=== PATIENT | female | born 1950 | race Caucasian/White ===

== ENCOUNTER 2018-09-24 10:42 | Outpatient (REF) | payer BC, SELFPAY ==
[2018-09-24 21:55] LABS: Abs Immature Grans 0.01 k/cumm (0.0-0.09); Absolute Basophil Count 0.04 k/cumm (0.0-0.2); Absolute Eosinophil Count 0.12 k/cumm (0.0-0.7); Absolute Neutrophil Count 2.51 k/cumm (1.2-6.7); Basophils % 0.8; Eosinophils % 2.3; HCT 35.8 % (36.0-46.0); HGB 11.8 g/dL (12.0-15.5); Immature Grans % 0.2; Lymphocytes % 38.6; Mean Corpuscular Hemoglobin 31.2 pg (27.0-33.0); Mean Corpuscular Volume 94.7 fL (80-95); Mean Platelet Volume 10.7 fL (8.0-11.0); Monocytes % 9.7; Neutrophils % 48.4; Platelet Count 255 x1000/uL (130-400); RBC 3.78 m/cumm (4.00-5.20); RBC Distribution Width 13.3 % (11.7-14.6); White Blood Cell Count 5.18 k/cumm (4.4-10.8)
[2018-09-24 22:08] LABS: ALT 17 U/L (12-78); AST 23 U/L (15-37); Albumin 3.8 g/dL (3.4-5.0); Alkaline Phosphatase 76 U/L (46-116); Anion Gap 9.6 mmol/L (3-11); BUN 10 mg/dL (7-18); Bilirubin, Total 0.4 mg/dL (0.2-1.0); CO2 27.4 mmol/L (21.0-32.0); CREATININE 0.97 mg/dL (0.55-1.02); Chloride 102 mmol/L (98-107); Estimated GFR 57.64 (mL/min/1.73m2); Glucose 84 mg/dL (70-100); Potassium 4.2 mmol/L (3.5-5.1); Sodium 139 mmol/L (136-145); Total Protein 7.2 g/dL (6.4-8.2)
== END 2018-09-24 11:02 ==
LOC: NCHCN 10:42
PROVIDERS: PCP Internal Medicine; Visit Provider Nurse Practitioner Family
DX: K50.90 Crohn's disease, unspecified, without complications (principal)
CPT/HCPCS: 80053; 85025

== ENCOUNTER 2018-11-14 10:29 | Outpatient (REF) | payer BC, SELFPAY ==
--- NOTE | 2018-11-14 10:00 | PAPFT_PTH ---
PATIENT: Nazia Bowden LOC: [facility] U#:[id number] AGE/SX: 67/F ROOM: RE11/14/[address]: Kendra Cardoso : 1950 BED: DIS: 11/14/2018 SPEC #: [id number] RECD: 11/15/18 13:01 STATUS: TAMMY NAVARRETE #: [id number] REFUGIO: 11/14/18 10:[address]: Kendra Cardoso [facility] Cytology RECD BY: Kendra Gamboa ENTERED: 11/15/18 13:01 SP TYPE: PAPFT OTHR DR: Joseph Wang Tissues: 1 - CX/ENDOCX FOR PAP SMEARS Procedures: PAP THIN PREP/UVM Screening HPV DNA PROBE Comments: [id number]
[2018-11-14 13:27] LABS: HGB 12.9 g/dL (12.0-15.5); Mean Corp. HGB Concentration 32.3 g/dL (32.0-36.0); Mean Corpuscular Hemoglobin 30.8 pg (27.0-33.0); Mean Corpuscular Volume 95.5 fL (80-95); Mean Platelet Volume 10.3 fL (8.0-11.0); Platelet Count 295 x1000/uL (130-400); RBC 4.19 m/cumm (4.00-5.20); RBC Distribution Width 15.4 % (11.7-14.6); White Blood Cell Count 5.79 k/cumm (4.4-10.8)
== END 2018-11-14 10:49 ==
LOC: NCHCN 10:29
PROVIDERS: PCP Internal Medicine; Visit Provider Nurse Practitioner Family
DX: L29.8 Other pruritus (principal); Z00.00 Encounter for general adult medical examination without abnormal findings; K50.90 Crohn's disease, unspecified, without complications; Z12.4 Encounter for screening for malignant neoplasm of cervix; Z01.419 Encounter for gynecological examination (general) (routine) without abnormal findings; Z11.51 Encounter for screening for human papillomavirus (HPV)
CPT/HCPCS: 85027; 88142; 87480; 87510; 87624; 87660

== ENCOUNTER 2018-11-21 01:35 | Outpatient (CLI) | payer BC, SELFPAY ==
--- NOTE | 2018-11-21 08:15 | DI.MAMMO_ITS ---
SYMPTOMS/DIAGNOSIS: SCREENING MAMMOGRAMS: Mammograms were interpreted according to the usual protocol including computer analysis with CAD system, tomosynthesis and C view imaging. The breasts are of moderate density with fairly symmetrical distribution of fibroglandular tissue. No dominant mass or clumped microcalcification is identified in either breast. Current examination is compared with the previous examinations including April 2017 and there has been no gross interval change in appearance in comparison with the previous studies. CONCLUSION: No specific evidence of malignancy at this time. Routine screening examinations are suggested at yearly intervals in this age group according to the ACS/ACR guidelines. Category 1, breast density category B. MQSA ASSESSMENT OF FINDINGS: Negative. Category 1. Patient will receive a letter notifying them of these results. BI-RADS category B. There are scattered areas of fibroglandular density.
== END 2018-11-21 01:55 ==
PROVIDERS: PCP Internal Medicine; Visit Provider Family Medicine
DX: Z12.31 Encounter for screening mammogram for malignant neoplasm of breast (principal)
CPT/HCPCS: 77063; 77067

== ENCOUNTER 2018-11-25 00:05 | Outpatient (CLI) | payer BC, SELFPAY ==
--- NOTE | 2018-11-25 08:15 | MERGEMPI_ITS ---
*[facility]* *[facility]* [address] [place] [address] Myocardial Perfusion Imaging - SPECT Adonay protocol Date of study: 11/25/2018 (Report amended ) *PATIENT PRESENTATION* Height: 123.8cm (48.8in) Blood Pressure: Weight: 59.1kg (130lb) BSA: 1.47m^2 Referring physician: Alan Curtis MD Ordering physician: Kendra Cardoso Impressions: Normal perfusion by Tc99m Sestamibi Imaging. Summary: 1. Myocardial perfusion imaging: No myocardial perfusion defects noted. 2. The calculated left ventricular ejection fraction after stress: 63%. No left ventricular regional motion abnormality. 3. Stress: The target heart rate was achieved. Indication: R07.9. History: REASON FOR VISIT: SHORTNESS OF BREATH AND CHEST PAINS WHEN WALKING UPSTAIRS. Risk factors: FORMER SMOKER FOR 30 YEARS. QUIT 1 YEAR AGO. Obesity. Dyslipidemia. Cholesterol: 247mg/dl. HDL: 66mg/dl. LDL: 166mg/dl. Triglycerides: 99mg/dl. ALLERGIES: QUININE.SULFA. MEDICATIONS: ADALIMUMAB (HUMIRA) 20 MG Q 10 DAYS. PRILOSEC 20 MG DAILY. ZYRTEC 10 MG DAILY. Imaging Technique: Protocol: Adonay protocol. Acquisition: Gated SPECT; 1 day - rest/stress. The patient was imaged in the supine position. Attenuation correction used. Isotope administration: - Rest. Tc[99m]-sestamibi. Dose: 10.3mCi. Injection time: 08:30 AM. Injection to stress time: 00:45. - Stress. Tc[99m]-sestamibi. Dose: 30.6mCi. Injection time: 09:55 AM. 1-2 min before end of exercise Baseline ECG: SINUS RHYTHM. HR 78 BPM. Stress protocol: + +---+ + !Stage !HR !BP (mmHg) ! + +---+ + !Baseline supine !78 !132/80 (97) ! + +---+ + !Baseline standing !81 !140/80 (100)! + +---+ + !Stage I; 1.7mph, 10degrees; 3 min !132!152/84 (107)! + +---+ + !Stage II; 2.5mph, 12degrees; 3 min!140! ! + +---+ + !Peak stress !145! ! + +---+ + !Recovery; 1 min !125!180/68 (105)! + +---+ + !Recovery; 4 min !92 !160/70 (100)! + +---+ + !Recovery; 7 min !88 !144/70 (95) ! + +---+ + * Stress results: Maximal heart rate during stress was 145bpm (94% of maximal predicted heart rate). The maximal predicted heart rate was 155bpm. The target heart rate was achieved. The rate-pressure product for the peak heart rate and blood pressure was 99241ix Hg/min. Stress ECG: TREADMILL PORTION OF STRESS TEST ENDED IN 4 MINUTES & 2 SECONDS DUE TO FATIGUE. NORMAL HEART RATE AND BLOOD PRESSURE RESPONSE TO EXERCISE. MAX HR = 145 % OF TARGET = 93 NO ECTOPY APPROXIMATE METS ACHIEVED = 5.85 MILD 1 OUT OF 10 LEFT ANTERIOR CHEST DISCOMFORT REPORTED 7 MINUTES POST EXERCISE, PT RELATED TO POSITION OF HOLDING ARMS UP ON THE TREADMILL. NO ANGINA THROUGHOUT EXERCISING. NO SIGNIFICANT ST SEGMENT CHANGES AVERAGE FUNCTIONAL CAPACITY FOR EXERCISE. Myocardial perfusion: Imaging information: gated. No myocardial perfusion defects noted. Ventricular Function (Wall Motion): The calculated left ventricular ejection fraction after stress: 63%. No left ventricular regional motion abnormality. Study data: Alan Curtis MD supervised and was readily available during the procedure. This study was interpreted by [facility]. Study status: Routine. Consent: The risks, benefits, and alternatives to the procedure were explained to the patient and informed consent was obtained. Procedure: Initial setup. A baseline ECG was recorded. Surface ECG leads and manual cuff blood pressure measurements were monitored. Heart sounds: Normal. Lung sounds: Normal. Treadmill exercise testing was performed using the Adonay protocol. Study completion: All catheters inserted during the procedure were removed. The patient tolerated the procedure well and was discharged from the lab. Discharge: The patient left the laboratory in stable condition. Birthdate: Patient birthdate: 1950. Sex: Gender: female. Study date: Study date: 11/25/2018. Study time: 00:01 AM. Electronically signed by Alan Curtis MD 11/28/2018 19:32
== END 2018-11-25 00:25 ==
PROVIDERS: PCP Internal Medicine; Visit Provider Nurse Practitioner Family
DX: R07.9 Chest pain, unspecified (principal); R06.02 Shortness of breath; E78.5 Hyperlipidemia, unspecified; E66.9 Obesity, unspecified; Z87.891 Personal history of nicotine dependence
CPT/HCPCS: 78452; 93017

== ENCOUNTER 2021-02-15 15:12 | Outpatient (REF) | payer OTHER, SELFPAY ==
[2021-02-15 21:13] LABS: HCT 40.3 % (36.0-46.0); HGB 13.3 g/dL (11.2-15.7); MCH 33.7 pg (27.0-33.0); MPV 10.3 fL (8.0-11.0); Platelet Count 300 10^3/uL (130-400); RBC 3.95 10^6/uL (3.93-5.22); RDW 14.1 % (11.7-14.6); RDW-SD 52.8 fL; WBC 6.59 10^3/uL (4.4-10.8)
[2021-02-15 22:06] LABS: Iron 53 ug/dL (50-170)
[2021-02-15 22:17] LABS: ALT 23 U/L (14-59); AST 33 U/L (15-37); Albumin 3.6 g/dL (3.4-5.0); Alkaline Phosphatase 100 U/L (46-116); Anion Gap 10.1 mmol/L (3-11); BUN 7 mg/dL (7-18); Bilirubin, Total 0.3 mg/dL (0.2-1.0); CO2 25.9 mmol/L (21.0-32.0); CREATININE 0.9 mg/dL (0.55-1.02); Calcium 9.4 mg/dL (8.5-10.1); Calculated LDL 92 mg/dL (<100); Chloride 104 mmol/L (98-107); Cholesterol 199 mg/dL (<200); Ferritin 101 ng/mL (8-252); Glucose 90 mg/dL (74-106); HDL Cholesterol 92 mg/dL (40-60); Sodium 140 mmol/L (136-145); Total Protein 7.7 g/dL (6.4-8.2); Triglyceride 75 mg/dL (<150)
== END 2021-02-15 15:13 | disposition home or self-care (01) ==
LOC: NCHCN 15:12
PROVIDERS: PCP Internal Medicine; Visit Provider Internal Medicine
DX: I10 Essential (primary) hypertension (principal); E78.5 Hyperlipidemia, unspecified; G25.81 Restless legs syndrome; K50.90 Crohn's disease, unspecified, without complications; K21.9 Gastro-esophageal reflux disease without esophagitis
CPT/HCPCS: 80053; 80061; 85027; 82728; 83540

== ENCOUNTER 2021-02-18 04:43 | Outpatient (CLI) | payer OTHER, SELFPAY ==
--- NOTE | 2021-02-18 | DI.MAMMO_ITS ---
Exam(s) MAMMO SCREENING EXAM: MAMMO SCREENING CLINICAL HISTORY: SCREENING, Z12.31 TECHNIQUE: Mammograms were interpreted according to the usual protocol including computer analysis w Appsee CAD system, tomosynthesis and C-view imaging. COMPARISON: FINDINGS: The breasts are of moderate density with fairly symmetrical distribution of fibroglandular tissue. N o dominant mass or clumped microcalcification is identified in either breast. Current examination is compared with previous examinations including November 2018 and there has been no gross interval change i n appearance in comparison with the prior studies. IMPRESSION: No specific evidence of malignancy at this time. Routine screening examinations are suggested at yea rly intervals in this age group according to the ACS ACR guidelines. BI-RADS Category 1 - Negative Breast Density - Category B - Scattered areas of fibroglandular density
== END 2021-02-18 05:03 ==
PROVIDERS: PCP Internal Medicine; Visit Provider Internal Medicine
DX: Z12.31 Encounter for screening mammogram for malignant neoplasm of breast (principal)
CPT/HCPCS: 77063; 77067

== ENCOUNTER 2021-07-06 06:00 | Emergency (ER) | payer MEDICARE, OTHER, SELFPAY ==
[2021-07-06] VITALS (106 sets, daily range): BP systolic 91–166; BP diastolic 46–97; PULSE 66–132; RESP 11–37; TEMP 36.3; O2SAT 71–98
--- NOTE | 2021-07-06 06:00 | RT.EKG_ITS ---
APPROVED REPORT Exam: Resting ECG Reason for Exam: chest pain Patient Location: E HR:64 bpm ECG Measurements Heart Rate 64 AXIS [place] 129 P 47 QRSd 88 QRS 55 QT 440 T 30 QTc 456 Conclusion Sinus arrhythmia...V-rate 48- 75, variation>10% Anteroseptal infarct, age indeterminate...Q >35mS, T neg, V1-V2 Normal [place] No acute ST changes
--- NOTE | 2021-07-06 06:01 | ED.GENADUL_ITS ---
Discharge Plan Disposition Patient Disposition: URIEL GREGORIO ([facility]) Condition: Stable Discharge Details Clinical Impression: NSTEMI (non-ST elevated myocardial infarction), Chest wall pain, Vomiting, Colitis Primary Care Provider: Joseph Wang ED Provider: Shane Bahena Home Meds and New Rx's Prescriptions: No Action oxybutynin chloride 10 MG tablet extended release 24hr 10 mg PO DAILY RF: 0 Humira 20 MG/0.4 ML syringe kit 20 mg PO PRN PRNRF: 0 cetirizine 10 mg tablet 10 mg PO DAILY RF: 0 pramipexole 0.5 mg tablet 0.5 mg PO DAILY RF: 0 omeprazole 20 mg capsule,delayed release(DR/EC) 20 mg PO DAILY RF: 0 Discharge Data Discharge Date/Time-TO BE ENTERED AT DEPARTURE: 07/06/21 19:10 Medical Decision Making <Vish Posada MD - Last Filed: 07/06/21 07:05> Patient presenting with onset of abdominal pain and vomiting earlier this morning. Now also experiencing some chest pain and shortness of breath which she presumes is from all the vomiting and dry heaving. She is not having diarrhea. Does have history of Crohn's and c. diff but neither seems likely due to lack of diarrhea. More concerned for bowel obstruction. EKG without acute ST changes. Will check troponin and chest x-ray but agree with patient that chest pain likely related to the vomiting. More concerned with the abdominal pain. ECG Data Attestation: I personally reviewed and interpreted this ECG (s) as follows: Prior ECG tracings: not available for review Interpretation: see EKG <Mona Rodrigues DO - Last Filed: 07/07/21 09:53> 0800 -- Please see Dr. Posada's note for initial presentation, exam, and plan. Case endorsed to follow-up on CT imaging and final disposition. CT reviewed and notes mild colitis but no definite obstruction. Chest x-ray reviewed and notes mild interstitial pneumonitis versus edema. Patient reassessed and pain still present. She had minimal relief with morphine. Her abdomen is soft but tender throughout. She denies shortness of breath or cough. She is still complaining of left-sided chest tenderness which is reproducible with palpation and agree likely musculoskeletal. During my evaluation, patient complained of feeling of having to go diarrhea. L oose brown stool was noted to be leaking out of anus on exam. She states her symptoms feel similar to when she has had C. difficile in the past. Will obtain a stool sample and urine sample. We will give a dose of Dilaudid and reassess. Patient now also dry heaving, will give Phenergan. C. difficile negative. Urinalysis notes ketones but no UTI. Repeat EKG notes slight t wave inversion in anterolateral leads but no other significant change. Patient still noted to be dry heaving after Phenergan. Will give a dose of Reglan and Valium IV and reassess. 0955 -- Repeat trop 592, normal value is <50. Pt still c/o some left sided chest pain. Dose of aspirin ordered. Nitro ordered which nurse reports patient had no significant immediate response to a total of 4 doses. 1030 -- Pt now c/o restless legs. Dose of her pramipexole ordered. 1225 --repeat EKG uptrending to 1368. Repeat EKG notes more pronounced T wave inversion in anterolateral leads no but ST elevation or depression. Case discussed with [facility] cardiology who does not feel this appears consistent with cardiac as she has had no response to nitro, her pain is reproducible, without significant EKG changes and she presented initially with vomiting and abdominal pain. Did not recommend treatment for ACS. Recommends trending troponins, and consider echo and stress test when available. Case discussed with hospitalist who feels that the EKG changes are significant and the patient is in the process of MO. Recommend transfer to [facility]. Recommend treatment with heparin, Plavix and beta dereje. [facility] cardiology paged. [phone] --patient states her abdominal and chest pain is improved. She states she did not have immediate relief with nitro but states her pain in her chest improved sometime after that. 1415 --discussed with [facility] cardiology who accepts patient for transfer. Accepting physician Dr. Melgoza. There are no beds available for likely 24 to 48 hours but may be able to potentially accept patient this evening pending bed availability. Discussed again with [facility] cardiology and the [facility] will review the EKGs with the cardiology team but there will be no bed availability for 24 to 48 hours. We will plan for transfer to [facility]. Patient is agreeable with plan. Discussed with hospitalist team and informed that if [facility] unable to accept patient this evening, will admit to the floor while awaiting transfer to [facility]. 1610 -- Discussed with [facility] transfer center and likely there is bed availability this evening. Will hold in the ED at this time. Case endorsed to Dr. Bahena to continue to monitor while awaiting transfer to [facility] this evening and to f/u on troponin. Medical Records Medical records reviewed: Yes I reviewed the patient's medical records. Imaging Data Radiologic Study: Radiologist's impression: XR Chest Exam date and time: 07/06/2021 6:28 AM Age: 70 years old Clinical indication: Chest pressure; Patient HX: Chest pain TECHNIQUE: Imaging protocol: XR of the chest. Views: 2 views. COMPARISON: CT ABDOMEN PELVIS W 07/06/2021 6:57 AM FINDINGS: Lungs: Mild interstitial pneumonitis versus edema. No consolidation. Pleural spaces: No pleural effusion. No pneumothorax. Heart/Mediastinum: No cardiomegaly. Bones/joints: Unremarkable. IMPRESSION: Mild interstitial pneumonitis versus edema suspected CT Abdomen And Pelvis With Contrast Exam date and time: 07/06/2021 6:28 AM Age: 70 years old Clinical indication: Generalized; Patient HX: Diffuse abdominal pain/vomiting TECHNIQUE: Imaging protocol: Computed tomography of the abdomen and pelvis with contrast. Radiation optimization: All CT scans at this facility use at least one of these dose optimization techniques: automated exposure control; mA and/or kV adjustment per patient size (includes targeted exams where dose is matched to clinical indication); or iterative reconstruction. Contrast material: OMNI-PAQUE 350; Contrast volume: 100 ml; Contrast route: IV; COMPARISON: No relevant prior studies available. FINDINGS: Minimal interstitial thickening/subsegmental atelectasis Liver: Suspected cirrhosis. Fatty infiltration and mild hepatomegaly No mass. Gallbladder and bile ducts: Normal. No calcified stones. No ductal dilation. Pancreas: Normal. No ductal dilation. Spleen: Normal. No splenomegaly. Adrenal glands: Normal. No mass. Kidneys and ureters: Hypodensities in the kidneys too small to characterize No hydronephrosis. Stomach and bowel: Prominent fluid-filled small bowel loops in the lower abdomen and pelvis. No discrete obstruction. Mild distention of the colon with mild wall thickening and minimal surrounding infiltration. Colonic diverticulosis without diverticulitis noted Appendix: No evidence of appendicitis. Intraperitoneal space: No free air. No significant fluid collection. Vasculature: No abdominal aortic aneurysm. Lymph nodes: No enlarged lymph nodes. Urinary bladder: Unremarkable as visualized. Reproductive: Unremarkable as visualized. Bones/joints: No acute fracture. Degenerative changes in the spine Soft tissues: Unremarkable. IMPRESSION: Mild colitis suspected. No definite obstruction. Question mild ileus in the small bowel Lab Data Lab results reviewed: Yes I reviewed the patient's lab results. ECG Data Attestation: I personally reviewed and interpreted this ECG (s) as follows: Interpretation: #1 -- rate of 64, sinus, no acute ST elevation or depression, MA 129, QTc 456, QRS 88. #2 -- rate of 105, sinus, no acute ST elevation or depression, slight t wave inversion in V4-5, MA 137, QTc 442, QRS 78. #3 -- rate of 107, sinus, no acute ST elevation of depression, more pronounced T waves in V3-5. MA 133, QRS 71. #4 -- rate of 89, sinus, T wave inversion in V3 to V5. No ST elevation or depression. <Shane Bahena MD - Last Filed: 07/08/21 19:32> Patient transferred to [facility] HPI <Vish Posada MD - Last Filed: 07/06/21 07:05> General Mode of arrival: EMS . Date/Time Provider Initiated Documentation: 07/06/21 06:01 . Limitations to Documentation: no limitations . Information obtained by: patient and RN notes reviewed . HPI Narrative: Patient presents to the ED by ambulance with onset of abdominal pain and vomiting couple of hours prior. Patient reports feeling well when she went to bed. Woke up with discomfort, feeling like she needed to have a bowel movement. She was unable to have a bowel movement and developed increasing pain, vomiting, dry heaving. She has subsequently developed some left-sided chest discomfort and shortness of breath that she thinks from all the dry heaving and retching. Her abdominal pain is diffuse. She does have pain in her back as well. She does have a history of Crohn's disease but is denying any recent diarrhea. She has had oophrectomy in the distant past. She had a previous episode of C. difficile about 7 years ago which this reminds her of. However, again patient not having any diarrhea. She denies fever/cough. Related Data Home Medications Medication Instructions Recorded Confirmed adalimumab [Humira] 20 mg PO PRN PRN 08/31/16 07/06/21 oxybutynin chloride 10 mg PO DAILY 08/31/16 07/06/21 cetirizine 10 mg PO DAILY 07/06/21 07/06/21 omeprazole 20 mg PO DAILY 07/06/21 07/06/21 pramipexole 0.5 mg PO DAILY 07/06/21 07/06/21 Review of Systems <Vish Posada MD - Last Filed: 07/06/21 07:05> Narrative: 04/28 Review of Systems completed and is negative except as stated above in HPI (Systems reviewed: Const, Eyes, ENT, Resp, CV, GI, , MSK, Skin, Neuro) PFSH <Vish Posada MD - Last Filed: 07/06/21 07:05> All Active Problems (Updated 07/06/21 @ 15:37 by Mona Rodrigues DO) NSTEMI (non-ST elevated myocardial infarction) (Acute) Chest wall pain (Acute) Vomiting (Acute) Colitis (Acute) Medical History Crohn's disease Surgical History H/O oophorectomy Social History Smoking/Tobacco Use Status: Never Smoking risk assessment performed?: Yes Alcohol Intake: current Alcohol Intake frequency: 0-2 drinks per day Alcohol type: beer Drug use: Occasionally Substance use type: marijuana Do you feel safe at home: Yes Do you feel safe in your relationship?: Yes Exam <Vish Posada MD - Last Filed: 07/06/21 07:05> Narrative Exam Narrative: Const: WDWN elderly female in NAD. HEENT: NC/AT. Normal facial exam. Dry MM. Eyes: Normal conjunctiva and sclera. Neck: Supple. Trachea midline. Lungs: Normal respiratory effort. Lungs are clear anteriorly Cor: RRR. Good radial pulses. GI: Soft. NT/ND. No guarding or rebound. Neuro: A+O x 3. Normal speech, mentation, gait. Cranial nerves II - XII grossly intact. No gross motor or sensory deficit. Ext: No C/C/E. Skin: Warm and dry without rash. Sign Out <Vish Posada MD - Last Filed: 07/06/21 07:05> Sign Out Data: Sign Out Comment: Labs look okay. Imaging pending. Patient signed over to Dr. Rodrigues. Last updated by Vish Posada MD at 07/06/21 07:21 Sign Out Comment: Pending transfer to [facility]. Holding in the ED if bed available at [facility] this evening. If no bed available at [facility] this evening, plan for admission to the floor while awaiting transfer to [facility] for NSTEMI. Last updated by Mona Rodrigues DO at 07/06/21 16:04
--- NOTE | 2021-07-06 06:15 | DI.CT_ITS ---
Exam(s) CT ABDOMEN PELVIS W EXAM: CT ABDOMEN PELVIS W CLINICAL HISTORY: diffuse abdominal pain/vomiting TECHNIQUE: Imaging Protocol: Axial computed tomography images with coronal and sagittal reformatted images were created and reviewed CONTRAST MATERIAL: Intravenous: Omnipaque 350 Contrast volume:70 mL Oral: No COMPARISON: No exams were available for comparison FINDINGS: ABDOMEN: Lung Bases: Coronary artery calcifications are present. Dependent basilar ground-glass opacities are present. These areas likely reflect atelectasis. Please correlate clinically. Liver: Normal density. No measurable mass. The liver measures 15 cm long. Portal, Superior Mesenteric, and Splenic Veins: Unremarkable. Gallbladder and Biliary Tract: No radiodense calculus or dilation. Pancreas: Normal density, no abnormal calcifications or inflammatory process. Spleen: Normal. Adrenals: No masses seen. Kidneys: Normal size, contour and axis. No radiodense stones or obstructive uropathy. There are few t iny hypodensities in the kidneys. They are too small for further characterization but likely reflect small cysts. Abdominal Aorta: Abdominal portion non-dilated. Atherosclerosis. Findings are most marked at the jd gin of the left common iliac artery where there is greater than 80 percent stenosis. Bowel: No evidence of obstruction. Concentric bowel wall thickening and pericolonic inflammation in the distal transverse colon and descending colon. There are few scattered diverticula in the sigmoid colon. Appendix is unremarkable. There is a moderate amount of stool and fluid in the colon. Peritoneal Cavity: No ascites, collection or mesenteric inflammatory response. No free air. Lymph Nodes: Within normal limits. Bones: Within normal limits for the patient's age. Grade 1 anterolisthesis of L5 on S1. No spondylo lysis. There is a sclerotic focus in the T10 vertebral body. Soft Tissues: Unremarkable. PELVIS: Bladder: Symmetric distention, no gross wall thickening. Reproductive Organs: Unremarkable as visualized. Lymph Nodes: Within normal limits. Bones: Within normal limits for the patient's age. IMPRESSION: 1. Bowel wall thickening and pericolonic inflammation in the distal transverse and descending colon c onsistent with colitis. 2. Bilateral basilar atelectasis. 3. Marked atherosclerosis particularly involving the proximal common left iliac artery. There appear s to be at least 80 percent stenosis. 4. Sclerotic focus in the T10 vertebral body. While this may represent a bone island. A metastatic focus cannot be excluded. Follow-up as clinically appropriate. Incidental Findings RADIATION DOSE DELIVERED: 685.81mGy.cm Total DLP DATA REPOSITORY: All CT scans at this facility are submitted to the National Radiology Data Registry (NRDR) Dose Index Registry (DIR) with the [employer] (ACR). RADIATION OPTIMIZATION: All CT scans at this facility use at least one of these dose optimization te chniques: automated exposure control; mA and/or kV adjustment per patient size (includes targeted exa ms where dose is matched to clinical indication); or iterative reconstruction.
--- NOTE | 2021-07-06 06:15 | DI.RAD_ITS ---
Exam(s) XR CHEST 2V PA LATERAL EXAM: XR CHEST 2V PA LATERAL CLINICAL HISTORY: CP TECHNIQUE: 2D digital imaging was performed of the chest. Two images were obtained. PA and lateral views were obtained. COMPARISON: No exams were available for comparison FINDINGS: MEDIASTINUM: Normal. HEART: Normal. PULMONARY VASCULATURE: Mild pulmonary venous congestion. LUNGS: Mild diffuse prominence of the interstitium. No focal consolidating infiltrates. PLEURAL SPACE: No pleural effusion or pneumothorax. BONE:Within normal limits for the patient's age. OTHER FINDINGS:Normal. IMPRESSION: Prominent interstitial disease and question of pulmonary venous congestion. This may represent inter stitial edema. Pneumonia cannot be excluded. Please correlate clinically. DATA REPOSITORY: RADIATION DOSE DELIVERED:
[2021-07-06 06:35] LABS: Abs Immature Grans 0.04 10^3/uL (0.0-0.06); Absolute Basophil Count 0.06 10^3/uL (0.0-0.2); Absolute Eosinophil Count 0.11 10^3/uL (0.0-0.7); Absolute Lymphocyte Count 2.52 10^3/uL (1.2-3.4); Absolute Monocyte Count 0.59 10^3/uL (0.1-0.8); Basophils % 0.5; Eosinophils % 0.9; HCT 44.2 % (36.0-46.0); HGB 14.4 g/dL (11.2-15.7); Immature Grans % 0.3; Lymphocytes % 21.5; MCH 32.7 pg (27.0-33.0); MCHC 32.6 % (32.0-36.0); MCV 100.2 fL (80-95); MPV 9.4 fL (8.0-11.0); Neutrophils % 71.8; Nucleated RBC 0 %; Platelet Count 369 10^3/uL (130-400); RBC 4.41 10^6/uL (3.93-5.22); RDW 13.7 % (11.7-14.6); RDW-SD 50.4 fL; WBC 11.74 10^3/uL (4.4-10.8)
[2021-07-06 06:37] LABS: Absolute Neutrophil Count 8.43 10^3/uL (1.2-6.7)
[2021-07-06] MEDS: MORPHine 10 MG/ML VIAL 2 MG IVP (06:49)
[2021-07-06] MEDS: Ondansetron 4 MG/2 ML VIAL IVP (06:49)
[2021-07-06 06:51] LABS: ALT 12 U/L (14-59); AST 19 U/L (15-37); Albumin 3.7 g/dL (3.4-5.0); Alkaline Phosphatase 88 U/L (46-116); Anion Gap 13.8 mmol/L (3-11); BUN 11 mg/dL (7-18); Bilirubin, Total 0.7 mg/dL (0.2-1.0); CO2 21.2 mmol/L (21.0-32.0); CREATININE 0.9 mg/dL (0.55-1.02); Calcium 9.2 mg/dL (8.5-10.1); Chloride 103 mmol/L (98-107); Glucose 183 mg/dL (74-106); Lipase 112 U/L (73-393); Magnesium 2.4 mg/dL (1.8-2.4); Potassium 3.7 mmol/L (3.5-5.1); Sodium 138 mmol/L (136-145); Total Protein 8.2 g/dL (6.4-8.2); Troponin I < 50 ng/L (<or=60)
[2021-07-06] MEDS: Lactated Ringers 1,000 ML 1000 ML IV (06:53)
[2021-07-06] MEDS: Normal Saline Flush 10 ML SYR IVP (07:08)
--- NOTE | 2021-07-06 07:36 | DI.VRAD_ITS ---
PROCEDURE INFORMATION: Exam: CT Abdomen And Pelvis With Contrast Exam date and time: 07/06/2021 6:28 AM Age: 70 years old Clinical indication: Generalized; Patient HX: Diffuse abdominal pain/vomiting TECHNIQUE: Imaging protocol: Computed tomography of the abdomen and pelvis with contrast. Radiation optimization: All CT scans at this facility use at least one of these dose optimization techniques: automated exposure control; mA and/or kV adjustment per patient size (includes targeted exams where dose is matched to clinical indication); or iterative reconstruction. Contrast material: OMNI-PAQUE 350; Contrast volume: 100 ml; Contrast route: IV; COMPARISON: No relevant prior studies available. FINDINGS: Minimal interstitial thickening/subsegmental atelectasis Liver: Suspected cirrhosis. Fatty infiltration and mild hepatomegaly No mass. Gallbladder and bile ducts: Normal. No calcified stones. No ductal dilation. Pancreas: Normal. No ductal dilation. Spleen: Normal. No splenomegaly. Adrenal glands: Normal. No mass. Kidneys and ureters: Hypodensities in the kidneys too small to characterize No hydronephrosis. Stomach and bowel: Prominent fluid-filled small bowel loops in the lower abdomen and pelvis. No discrete obstruction. Mild distention of the colon with mild wall thickening and minimal surrounding infiltration. Colonic diverticulosis without diverticulitis noted Appendix: No evidence of appendicitis. Intraperitoneal space: No free air. No significant fluid collection. Vasculature: No abdominal aortic aneurysm. Lymph nodes: No enlarged lymph nodes. Urinary bladder: Unremarkable as visualized. Reproductive: Unremarkable as visualized. Bones/joints: No acute fracture. Degenerative changes in the spine Soft tissues: Unremarkable. IMPRESSION: Mild colitis suspected. No definite obstruction. Question mild ileus in the small bowel Dictated and Authenticated by: Eduardo Middleton MD. Ordering:CONNOR Wahl MD
--- NOTE | 2021-07-06 07:37 | DI.VRAD_ITS ---
PROCEDURE INFORMATION: Exam: XR Chest Exam date and time: 07/06/2021 6:28 AM Age: 70 years old Clinical indication: Chest pressure; Patient HX: Chest pain TECHNIQUE: Imaging protocol: XR of the chest. Views: 2 views. COMPARISON: CT ABDOMEN PELVIS W 07/06/2021 6:57 AM FINDINGS: Lungs: Mild interstitial pneumonitis versus edema. No consolidation. Pleural spaces: No pleural effusion. No pneumothorax. Heart/Mediastinum: No cardiomegaly. Bones/joints: Unremarkable. IMPRESSION: Mild interstitial pneumonitis versus edema suspected Dictated and Authenticated by: Eduardo Middleton MD. Ordering:CONNOR Wahl MD
--- NOTE | 2021-07-06 08:00 | RT.EKG_ITS ---
APPROVED REPORT Exam: Resting ECG Reason for Exam: Abd pain/diarrhea/2nd Trop Patient Location: E HR:105 bpm ECG Measurements Heart Rate 105 AXIS [place] 137 P 50 QRSd 78 QRS 72 QT 334 T 69 QTc 442 Conclusion Sinus tachycardia...rate> 99 Consider anterolateral infarct...Q >30mS, I aVL V3-V6,I,aVL. Slight T wave inversion in V4-5. No STEMI. I have reviewed and interpreted ECG and agree with software generated interpretation.
[2021-07-06] MEDS: Normal Saline 500 ML IV (08:25)
[2021-07-06 09:01] LABS: C Diff PCR Negative (Negative)
[2021-07-06 09:35] LABS: Bilirubin Negative (Negative); Blood Negative (Negative); Clarity Clear (Clear); Glucose Negative (Negative); Ketones 40 mg/dL (Negative); Leukocyte Esterase Negative (Negative); Nitrite Negative (Negative); Urobilinogen 0.2 EU/dL (Up TO 0.2); pH 6.5 (5-8)
[2021-07-06] MEDS: Metoclopramide 10 MG/2 ML VIAL IVP (09:59)
[2021-07-06] MEDS: diazePAM 10 MG/2 ML SYR 2 MG IVP (09:59)
[2021-07-06 10:16] LABS: Troponin I 592 ng/L (<or=60)
[2021-07-06] MEDS: Aspirin 325 MG TAB PO (10:32)
[2021-07-06] MEDS: nitroGLYcerin 0.4 MG TAB SL ×3 (10:56→11:54)
--- NOTE | 2021-07-06 11:15 | RT.EKG_ITS ---
APPROVED REPORT Exam: Resting ECG Reason for Exam: chest pain Patient Location: E HR:118 bpm ECG Measurements Heart Rate 118 AXIS [place] 133 P 47 QRSd 71 QRS 80 QT [id number] T [id number] QTc 0 Conclusion Sinus tachycardia...rate> 99 Low voltage, extremity leads...all extremity leads <0.5mV Consider anterolateral infarct...Q >30mS, I aVL V3-V6,I,aVL. More pronounced T wave inversion in V3-5. No STEMI. I have reviewed and interpreted ECG and agree with software generated interpretation.
[2021-07-06 11:31] LABS: Source Nasal/Nares
[2021-07-06] MEDS: Pramipexole 0.5 MG TAB PO (11:54)
[2021-07-06 12:51] LABS: Troponin I 1368 ng/L (<or=60)
[2021-07-06] MEDS: Metoprolol 5 MG/5 ML VIAL IVP (14:09)
[2021-07-06] MEDS: Clopidogrel 300 MG TAB PO (14:09)
[2021-07-06 14:53] LABS: Prothrombin Time 10.4 sec (9.3-11.0)
[2021-07-06 15:03] LABS: PTT Activated 21.4 sec (21.0-27.5)
--- NOTE | 2021-07-06 15:30 | RT.EKG_ITS ---
APPROVED REPORT Exam: Resting ECG Reason for Exam: chest pain Patient Location: E HR:88 bpm ECG Measurements Heart Rate 88 AXIS [place] 139 P 157 QRSd 74 QRS 142 QT 396 T 187 QTc 480 Conclusion Right and left arm electrode reversal, interpretation assumes no reversal Sinus or ectopic atrial rhythm...P axis (-45,135) Consider anterolateral infarct...Q >30mS, I aVL V3-V6,I,aVL. Arm lead reversal. Will repeat. T wave inversion in V3-5. No STEMI. I have reviewed and interpreted ECG and agree with software generated interpretation.
--- NOTE | 2021-07-06 15:45 | RT.EKG_ITS ---
APPROVED REPORT Exam: Resting ECG Reason for Exam: chest pain Patient Location: E HR:89 bpm ECG Measurements Heart Rate 89 AXIS [place] 137 P 55 QRSd 77 QRS 70 QT 401 T [id number] QTc 489 Conclusion Sinus rhythm...normal P axis, V-rate 60- 99 Low voltage, extremity leads...all extremity leads <0.5mV Consider anteroseptal infarct...Q >30mS, dimin R, V1-V2. Sinus. T wave inversion in leads V3-5. No ST elevation or depression. I have reviewed and interpreted ECG and agree with software generated interpretation.
[2021-07-06 16:39] LABS: Troponin I 2247 ng/L (<or=60)
[2021-07-06 20:21] LABS: COVID-19 PCR Negative (Negative)
[2021-07-07 11:37] LABS: Campylobacter PCR Negative (Negative); Salmonella PCR Negative (Negative); Shiga Toxin PCR Negative (Negative); Shigella/Enteroinvasive Ecoli Negative (Negative)
== END 2021-07-06 19:10 | disposition short-term general hospital (02) ==
PROVIDERS: Emergency Medicine; Physician Assistant; Emergency Provider Student in an Organized Health Care Education/Training Program; PCP Internal Medicine
DX: I21.4 Non-ST elevation (NSTEMI) myocardial infarction (principal); R11.10 Vomiting, unspecified; R07.89 Other chest pain; K52.9 Noninfective gastroenteritis and colitis, unspecified; R10.9 Unspecified abdominal pain
CPT/HCPCS: 36415; 80053; 83690; 87493; 87505; 87635; 93005; 96361; 96365; 96366; 96367; 96375; 96376; 99285; 71046; 74177; 81003; 83735; 84484; 85025; 85610; 85730; 93010; J2270; J2405; J2765; J3360

== ENCOUNTER 2021-08-15 11:00 | Outpatient (RCR) | payer MEDICARE, SELFPAY | END 2021-08-15 23:59 | disposition home or self-care (01) | LOC: CR 11:00 | PROVIDERS: PCP Internal Medicine; Visit Provider Family Medicine | DX: Z51.89 Encounter for other specified aftercare (principal); I25.2 Old myocardial infarction; I24.9 Acute ischemic heart disease, unspecified; I42.8 Other cardiomyopathies | CPT/HCPCS: S9472 ==

== ENCOUNTER 2021-09-09 11:00 | Outpatient (RCR) | payer MEDICARE, SELFPAY | END 2021-09-12 23:59 | disposition home or self-care (01) | LOC: CR 11:00 | PROVIDERS: PCP Internal Medicine; Visit Provider Family Medicine | DX: Z51.89 Encounter for other specified aftercare (principal); I25.2 Old myocardial infarction; I42.8 Other cardiomyopathies | CPT/HCPCS: S9472 ==

== ENCOUNTER 2021-09-27 10:35 | Outpatient (CLI) | payer MEDICARE, SELFPAY ==
--- NOTE | 2021-09-27 12:15 | RT.EKG_ITS ---
APPROVED REPORT Exam: Resting ECG Reason for Exam: [place] Patient Location: O HR:72 bpm ECG Measurements Heart Rate 72 AXIS [place] 137 P 37 QRSd 98 QRS 33 QT 418 T 22 QTc 458 Conclusion Sinus rhythm...normal P axis, V-rate 50- 99 Normal Electrocardiogram
== END 2021-09-27 10:36 | disposition home or self-care (01) ==
PROVIDERS: PCP Nurse Practitioner Family; Referring Provider Internal Medicine; Visit Provider Internal Medicine Cardiovascular Disease
DX: I21.4 Non-ST elevation (NSTEMI) myocardial infarction (principal)
CPT/HCPCS: 93010

== ENCOUNTER → 2021-09-27 10:35 | Outpatient (BNVA) | payer MEDICARE, SELFPAY | PROVIDERS: PCP Nurse Practitioner Family; Referring Provider Internal Medicine; Visit Provider Internal Medicine Cardiovascular Disease | DX: I25.2 Old myocardial infarction (principal); I42.9 Cardiomyopathy, unspecified | CPT/HCPCS: 99213 ==

== ENCOUNTER 2021-09-28 11:00 | Outpatient (RCR) | payer MEDICARE, SELFPAY | END 2021-10-13 23:59 | disposition home or self-care (01) | LOC: CR 11:00 | PROVIDERS: PCP Internal Medicine; Visit Provider Family Medicine | DX: Z51.89 Encounter for other specified aftercare (principal); I25.2 Old myocardial infarction; I42.8 Other cardiomyopathies | CPT/HCPCS: S9472 ==

== ENCOUNTER 2021-11-03 01:25 | Outpatient (CLI) | payer MEDICARE, SELFPAY ==
--- NOTE | 2021-11-03 07:39 | DI.US_ITS ---
APPROVED REPORT EXAM: Comprehensive 2D, Doppler, and color-flow Echocardiogram Patient Location: Out-Patient Salesperson [employer]: Hollie Owusu RDCS (AE) Indications: Cardiomyopathy Other Information Study Quality: Good Conclusion Normal left ventricular wall thickness and chamber size. Estimated ejection fraction is 60%. Wall m otion is normal Normal right ventricular size and systolic function Both atria are normal in size Aortic valve is trileaflet and mildly sclerotic without stenosis or regurgitation Normal mitral valve with trace to mild regurgitation Right ventricular systolic pressure could not be estimated Wall motion Left Ventricle The left ventricle is normal size. The left ventricular systolic function is normal. The left ventric ular ejection fraction is within the normal range. There is normal left ventricular wall thickness. T here is normal LV segmental wall motion. There is no ventricular septal defect visualized. LVEF is 59 %. Right Ventricle The right ventricle is normal size. The right ventricular systolic function is normal. Atria The left atrium size is normal. The right atrium size is normal. The interatrial septum is intact wit h no evidence for an atrial septal defect. Aortic Valve The aortic valve is mildly sclerotic and trileaflet There is no aortic valvular stenosis. No aortic r egurgitation is present. Mitral Valve The mitral valve is normal in structure. No evidence of mitral valve stenosis. Trace to mild mitral r egurgitation. Tricuspid Valve The tricuspid valve is normal in structure. There is no tricuspid valve stenosis. Trace tricuspid reg urgitation. Unable to assess PA pressure. Pulmonic Valve The pulmonary valve is normal in structure. There is no pulmonic valvular stenosis. There is no pulmo ishan valvular regurgitation. Great Vessels The aortic root is normal in size. The ascending aorta is normal in size. Aortic arch is not well vis ualized. IVC is normal in size and collapses >50% with inspiration. Pericardium There is no pericardial effusion. 2D Dimensions IVSD d PLAX 0.73 cm F: 0.6-1.0 LV Vol A2C d MOD 63.9 mL LVPW d PLAX 0.77 cm F: 0.6 - 1.0 LV Vol A4C d MOD 54.1 mL LVID d PLAX 4.22 cm F: 3.8 - 5.2 LA vol/ BSA A2C s A-L 24.1 mL/m2 LVDs 2.85 cm F: 2.2 - 3.5 LA vol/ BSA A4C s A-L 18.2 mL/m2 Ao Root d 2.87 cm F: 2.7 - 3.3 LA Vol/ BSA Biplane s A-L 21.3 mL/m2 RA Area A4C 8.66 cm2 LA Area A4C s MOD 11.52 cm2 RA Vol/ BSA A4C s A-L 12.4 mL/m2 LA Area A2C s MOD 13.46 cm2 Ao Asc Diam d 3.05 cm F: 2.3 - 3.1 LV EF A4C MOD 58.0 % LV EF Teichholz 60.2 % LV EF A2C MOD 59.0 % LVEF (Roberts's) 58.21 % F: 54 - 74 LV EF Biplane MOD 58.2 % LV Volume 51.28 mL F: 46 - 106 SV 34.75 mL LV Volume Index 36.89 mL/m2 F: 29 - 61 SV Index 24.95 mL/m2 LV Vol Biplane MOD 59.7 mL FS 31.75 % M-Mode TAPSE 2.25 cm (M/F) >1.7 LV Diastology MV E' medial 0.064 (>0.07 m/s) E/A Ratio 0.9 LV E/e MED 11.50 (<14) MV E Vmax 0.73 (0.4-1.3 m/s) MV E' lateral 0.130 (>0.1 m/s) MV A Vmax 0.85 (0.4-1.3 m/s) LV E/e LAT 5.60 (<14) MV E/A Ratio 0.84 MV E/E' medial 11.50 MV E/E' lateral 5.64 Aortic Valve LVOT Area 3.08 cm2 AoV Area Vmax 2.49 cm2 LVOT Vmax 0.98 m/s AoV Area/ BSA (Vmax) 1.79 cm2/m2 LVOT Mean Carmelo. 0.71 m/s DAVID Mean Carmelo. 2.57 cm2 LVOT Peak Grad 3.9 mmHg DAVID Mean Carmelo. Index 1.85 cm2/m2 LVOT Mean Grad 2.2 mmHg LVOT VTI 0.211 m LVOT Diam s 1.95 cm AoV Vmax 1.22 m/s Velocity Ratio 0.80 AoV Mean Carmelo. 0.85 m/s AoV Peak Grad 5.9 mmHg LVOT SV 64.85 mL AoV Mean Grad 3.2 mmHg AoV VTI 0.257 m AoV Area VTI 2.53 cm2 AoV Area/ BSA (VTI) 1.81 cm/m2 Mitral Valve MV DT 202 (160-240 msec) MR Vmax 4.38 m/s MV PHT 58 msec MR VTI 1.675 m MV Area PHT 3.76 cm2 MR Peak Grad 76.9 mmHg MV VTI 0.312 m MR Mean Grad 62.8 mmHg MV VTI Annulus 0.316 m MV Area VTI 2.11 (4.0-6.0 cm2) Pulmonary Valve PV Vmax 0.96 (0.5-1.5 m/s) RVOT Peak Gr. 1.16 mmHg PV Peak Grad 3.7 mmHg RVOT Mean Gr. 0.65 mmHg PV Mean Grad 2.1 mmHg RVOT VTI 0.113 m PV VTI 0.211 m RVOT Vmax 0.54 m/s
== END 2021-11-03 01:45 ==
LOC: DI 01:25
PROVIDERS: PCP Nurse Practitioner Family; Visit Provider Internal Medicine Cardiovascular Disease
DX: I42.9 Cardiomyopathy, unspecified (principal)
CPT/HCPCS: 93306

== ENCOUNTER 2021-11-11 11:00 | Outpatient (RCR) | payer MEDICARE, SELFPAY | END 2021-11-12 23:59 | disposition home or self-care (01) | LOC: CR 11:00 | PROVIDERS: PCP Nurse Practitioner Family; Visit Provider Internal Medicine Cardiovascular Disease | DX: Z51.89 Encounter for other specified aftercare (principal); Z95.5 Presence of coronary angioplasty implant and graft; I42.8 Other cardiomyopathies | CPT/HCPCS: S9472 ==

== ENCOUNTER 2021-11-18 11:00 | Outpatient (RCR) | payer MEDICARE, SELFPAY | END 2021-12-13 23:59 | disposition home or self-care (01) | LOC: CR 11:00 | PROVIDERS: PCP Nurse Practitioner Family; Visit Provider Internal Medicine Cardiovascular Disease | DX: Z51.89 Encounter for other specified aftercare (principal); I25.2 Old myocardial infarction; I42.9 Cardiomyopathy, unspecified | CPT/HCPCS: S9472 ==

== ENCOUNTER → 2021-11-22 11:14 | Outpatient (BNVA) | payer MEDICARE, SELFPAY | PROVIDERS: PCP Nurse Practitioner Family; Referring Provider Nurse Practitioner Family; Visit Provider Internal Medicine Cardiovascular Disease | DX: I42.9 Cardiomyopathy, unspecified (principal); I25.2 Old myocardial infarction | CPT/HCPCS: 99213 ==

== ENCOUNTER 2021-12-23 16:11 | Outpatient (REF) | payer MEDICARE, SELFPAY ==
[2021-12-23 14:26] LABS: HGB 12.2 g/dL (11.2-15.7); MCH 32.2 pg (27.0-33.0); MCHC 32.1 % (32.0-36.0); MCV 100 fL (80-95); MPV 10.3 fL (8.0-11.0); Platelet Count 271 10^3/uL (130-400); RBC 3.79 10^6/uL (3.93-5.22); RDW-SD 48.1 fL; WBC 4.27 10^3/uL (4.4-10.8)
[2021-12-23 22:43] LABS: Folate > 20.0 ng/mL (8.6-20.0); Vitamin B12 142 pg/mL (193-986)
== END 2021-12-23 16:12 | disposition home or self-care (01) ==
LOC: NCHCN 16:11
PROVIDERS: PCP Nurse Practitioner Family; Visit Provider Nurse Practitioner Family
DX: D75.89 Other specified diseases of blood and blood-forming organs (principal); E53.8 Deficiency of other specified B group vitamins
CPT/HCPCS: 85027; 82607; 82746

== ENCOUNTER 2022-01-12 14:00 | Outpatient (RCR) | payer SELFPAY ==
[2021-12-14 00:09] VITALS: BP 140/75; PULSE 71
[2021-12-15 14:03] VITALS: BP 136/67; PULSE 76
[2021-12-20 14:02] VITALS: BP 159/84; PULSE 96
[2021-12-22 14:42] VITALS: BP 108/47; PULSE 84
[2021-12-27 14:12] VITALS: BP 121/63; PULSE 84
[2021-12-29 13:53] VITALS: BP 144/79; PULSE 85
[2022-01-03 14:04] VITALS: BP 101/53; PULSE 67
[2022-01-05 14:42] VITALS: BP 118/71; PULSE 78
[2022-01-10 13:56] VITALS: BP 114/51; PULSE 96
[2022-01-12 13:51] VITALS: BP 109/66; PULSE 71
== END 2022-01-12 23:59 | disposition home or self-care (01) ==
LOC: CR 14:00
PROVIDERS: PCP Nurse Practitioner Family; Visit Provider Internal Medicine Cardiovascular Disease
DX: R69 Illness, unspecified (principal)

== ENCOUNTER 2022-02-02 14:00 | Outpatient (RCR) | payer SELFPAY ==
[2022-01-17 14:24] VITALS: BP 119/62; PULSE 80
[2022-01-19 14:00] VITALS: BP 118/56; PULSE 87
[2022-01-24 13:52] VITALS: BP 134/64; PULSE 86
[2022-01-26 14:28] VITALS: BP 103/57; PULSE 77
[2022-01-31 13:50] VITALS: BP 161/75; PULSE 90
[2022-02-02 13:53] VITALS: BP 108/71; PULSE 97
== END 2022-02-12 23:59 | disposition home or self-care (01) ==
LOC: CR 14:00
PROVIDERS: PCP Nurse Practitioner Family; Visit Provider Internal Medicine Cardiovascular Disease
DX: R69 Illness, unspecified (principal)

== ENCOUNTER → 2022-02-17 00:09 | Outpatient (CLI) | payer OTHER, SELFPAY ==
--- NOTE | 2022-02-17 10:13 | DI.DEXA_ITS ---
Exam(s) XR DEXA BONE DENSITY W/WO BOUCHRA EXAM: XR DEXA BONE DENSITY W/WO BOUCHRA CLINICAL HISTORY: OSTEOPOROSIS M81.0 TECHNIQUE: COMPARISON: DX DEXA BONE DENSITY WITH BOUCHRA from 02/22/2016 FINDINGS: Lateral Spine Image: Unremarkable. No compression deformities identified. Left hip: Total T-Score: -2.8. This compares to -1.8 on the prior examination. Total Z-Score: -1.3 T- and Z-scores: Findings are consistent with osteoporosis. Lumbar Spine: Total T-Score: -1.6. This compares to -1.8 on the prior examination. Total Z-Score: 0.5 T- and Z-scores: Findings are consistent with osteopenia. IMPRESSION: Osteoporosis in the left hip.
== END ==
PROVIDERS: PCP Nurse Practitioner Family; Visit Provider Nurse Practitioner Family
DX: M81.0 Age-related osteoporosis without current pathological fracture (principal); M85.88 Other specified disorders of bone density and structure, other site
CPT/HCPCS: 77080

== ENCOUNTER 2022-03-14 13:53 | Outpatient (RCR) | payer SELFPAY ==
[2022-02-13 00:16] VITALS: BP 108/71; PULSE 97
[2022-02-14 14:02] VITALS: BP 128/77; PULSE 96
[2022-02-16 14:22] VITALS: BP 154/85; PULSE 90
[2022-02-21 14:07] VITALS: BP 153/77; PULSE 80
[2022-02-23 15:05] VITALS: BP 145/60; PULSE 97
[2022-02-28 13:47] VITALS: BP 147/69; PULSE 106
[2022-03-02 13:51] VITALS: BP 130/72; PULSE 89
[2022-03-07 13:51] VITALS: BP 146/81; PULSE 86
[2022-03-09 14:04] VITALS: BP 120/59; PULSE 82
[2022-03-14 14:14] VITALS: BP 171/77; PULSE 87
== END 2022-03-15 23:59 | disposition home or self-care (01) ==
LOC: CR 13:53
PROVIDERS: PCP Nurse Practitioner Family; Visit Provider Internal Medicine Cardiovascular Disease
DX: R69 Illness, unspecified (principal)

== ENCOUNTER 2022-04-04 13:49 | Outpatient (RCR) | payer SELFPAY ==
[2022-03-16 00:19] VITALS: BP 171/77; PULSE 87
[2022-03-21 13:59] VITALS: BP 122/59; PULSE 79
[2022-03-23 13:53] VITALS: BP 124/70; PULSE 91
[2022-03-28 13:52] VITALS: BP 115/58; PULSE 95
[2022-03-30 13:58] VITALS: BP 107/64; PULSE 80
[2022-04-04 13:57] VITALS: BP 114/53; PULSE 86
== END 2022-04-14 23:59 | disposition home or self-care (01) ==
LOC: CR 13:49
PROVIDERS: PCP Nurse Practitioner Family; Visit Provider Internal Medicine Cardiovascular Disease
DX: R69 Illness, unspecified (principal)

== ENCOUNTER 2022-05-11 14:07 | Outpatient (RCR) | payer SELFPAY ==
[2022-04-15 00:11] VITALS: BP 114/53; PULSE 86
[2022-05-02 13:59] VITALS: BP 129/55; PULSE 88
[2022-05-04 14:06] VITALS: BP 124/66; PULSE 92
[2022-05-09 14:01] VITALS: BP 123/63; PULSE 92
[2022-05-11 14:02] VITALS: BP 123/58; PULSE 91
== END 2022-05-15 23:59 | disposition home or self-care (01) ==
LOC: CR 14:07
PROVIDERS: PCP Nurse Practitioner Family; Visit Provider Internal Medicine Cardiovascular Disease
DX: R69 Illness, unspecified (principal)

== ENCOUNTER 2022-06-13 14:06 | Outpatient (RCR) | payer SELFPAY ==
[2022-05-16 14:48] VITALS: BP 134/67; PULSE 77
[2022-05-30 14:05] VITALS: BP 128/63; PULSE 85
[2022-06-01 14:01] VITALS: BP 155/75; PULSE 90
[2022-06-06 14:03] VITALS: BP 141/61; PULSE 91
[2022-06-13 14:09] VITALS: BP 146/73; PULSE 90
== END 2022-06-14 23:59 | disposition home or self-care (01) ==
LOC: CR 14:06
PROVIDERS: PCP Nurse Practitioner Family; Visit Provider Internal Medicine Cardiovascular Disease
DX: R69 Illness, unspecified (principal)

== ENCOUNTER 2022-06-24 15:31 | Outpatient (REF) | payer MEDICARE, SELFPAY ==
[2022-06-24 16:19] LABS: ALT 23 U/L (14-59); AST 39 U/L (15-37); Albumin 3.7 g/dL (3.4-5.0); Alkaline Phosphatase 75 U/L (46-116); Anion Gap 11.5 mmol/L (3-11); BUN 6 mg/dL (7-18); Bilirubin, Total 0.3 mg/dL (0.2-1.0); CO2 23.5 mmol/L (21.0-32.0); CREATININE 0.8 mg/dL (0.55-1.02); Calcium 8.7 mg/dL (8.5-10.1); Chloride 104 mmol/L (98-107); Estimated GFR 79.71 (mL/min/1.73m2); Glucose 100 mg/dL (74-106); Potassium 4.5 mmol/L (3.5-5.1); Sodium 139 mmol/L (136-145); Total Protein 7.9 g/dL (6.4-8.2)
== END 2022-06-24 15:32 | disposition home or self-care (01) ==
LOC: LBN 15:31
PROVIDERS: PCP Nurse Practitioner Family; Visit Provider Physician Assistant Medical
DX: Z20.822 Contact with and (suspected) exposure to COVID-19 (principal)
CPT/HCPCS: 80053

== ENCOUNTER 2022-07-13 14:28 | Outpatient (RCR) | payer SELFPAY ==
[2022-06-15 00:10] VITALS: BP 146/73; PULSE 90
[2022-06-20 14:33] VITALS: BP 158/80; PULSE 85
== END 2022-07-15 23:59 | disposition home or self-care (01) ==
LOC: CR 14:28
PROVIDERS: PCP Nurse Practitioner Family; Visit Provider Internal Medicine Cardiovascular Disease
DX: R69 Illness, unspecified (principal)

== ENCOUNTER 2022-08-15 14:06 | Outpatient (RCR) | payer SELFPAY ==
[2022-07-16 00:06] VITALS: BP 158/80; PULSE 85
[2022-08-01 14:00] VITALS: BP 149/80; PULSE 98
[2022-08-03 14:02] VITALS: BP 139/63; PULSE 76
[2022-08-08 14:06] VITALS: BP 156/79; PULSE 89
[2022-08-15 14:48] VITALS: BP 147/67; PULSE 85
== END 2022-08-15 23:59 | disposition home or self-care (01) ==
LOC: CR 14:06
PROVIDERS: PCP Nurse Practitioner Family; Visit Provider Internal Medicine Cardiovascular Disease
DX: R69 Illness, unspecified (principal)

== ENCOUNTER 2022-09-12 14:05 | Outpatient (RCR) | payer SELFPAY ==
[2022-08-22 14:05] VITALS: BP 138/70; PULSE 94
[2022-08-24 14:01] VITALS: BP 152/72; PULSE 84
[2022-08-29 14:07] VITALS: BP 178/76; PULSE 82
[2022-09-05 14:15] VITALS: BP 140/71; PULSE 88
[2022-09-12 14:20] VITALS: BP 142/64; PULSE 90
== END 2022-09-12 23:59 | disposition home or self-care (01) ==
LOC: CR 14:05
PROVIDERS: PCP Nurse Practitioner Family; Visit Provider Internal Medicine Cardiovascular Disease
DX: R69 Illness, unspecified (principal)

== ENCOUNTER 2022-10-12 14:11 | Outpatient (RCR) | payer SELFPAY ==
[2022-09-13 00:09] VITALS: BP 142/64; PULSE 90
[2022-09-14 14:05] VITALS: BP 144/67; PULSE 85
[2022-09-19 14:05] VITALS: BP 136/68; PULSE 55
[2022-09-26 14:02] VITALS: BP 149/74; PULSE 86
[2022-09-28 14:09] VITALS: BP 125/61; PULSE 85
[2022-10-03 14:05] VITALS: BP 125/68; PULSE 89
[2022-10-05 14:03] VITALS: BP 150/68; PULSE 79
[2022-10-10 13:59] VITALS: BP 146/81; PULSE 70
[2022-10-12 14:16] VITALS: BP 138/65; PULSE 79
== END 2022-10-13 23:59 | disposition home or self-care (01) ==
LOC: CR 14:11
PROVIDERS: PCP Nurse Practitioner Family; Visit Provider Internal Medicine Cardiovascular Disease

== ENCOUNTER 2022-10-19 14:06 | Outpatient (RCR) | payer SELFPAY ==
[2022-10-14 00:18] VITALS: BP 138/65; PULSE 79
[2022-10-19 14:11] VITALS: BP 156/75; PULSE 86
== END 2022-11-12 23:59 | disposition home or self-care (01) ==
LOC: CR 14:06
PROVIDERS: PCP Nurse Practitioner Family; Visit Provider Internal Medicine Cardiovascular Disease

== ENCOUNTER 2022-12-12 02:24 | Outpatient (CLI) | payer MEDICARE, SELFPAY ==
--- NOTE | 2022-12-12 | DI.MAMMO_ITS ---
Exam(s) MAMMO SCREENING EXAM: MAMMO SCREENING CLINICAL HISTORY: SCREENING FOR BREAST CANCER Z12.39. TECHNIQUE: Bilateral full field digital CC and MLO mammographic images were obtained with 3D tomosyn thesis and utilizing computer aided detection (CAD). COMPARISON: Prior mammograms were reviewed. FINDINGS: There has been no significant change in the appearance and distribution of the fibroglandular tissue. There are no new spiculated masses nor malignant appearing microcalcification groups. There is no significant architectural distortion nor skin thickening-retraction. IMPRESSION: No radiographic evidence of malignancy. BI-RADS Category 1 - Negative Breast Density - Category B - Scattered areas of fibroglandular density Breast density Category C or D implies that the patient has dense breast tissue. Dense breast tissue can make it harder to find cancer on a mammogram. Dense breast tissue is also associated with an incr eased risk of breast cancer. This information about the result of the mammogram report was provided to the patient to raise their awareness. Use this report when you speak with the patient about their risks for breast cancer, which includes their family history. At that time, you may recommend additional screening tests (Ultrasoun d or MRI) as these tests may add significant information. A negative radiographic report should not delay biopsy if a dominant or clinically suspicious mass is present. Up to ten percent of cancers are not identified on mammography. A negative report may reinforce clinical impression. Adenosis and dense breasts may obscure an underlying neoplasm. False positive reports average 6 to 10%. Patient will receive a letter notifying them of these results.
--- NOTE | 2022-12-12 | DI.CT_ITS ---
Exam(s) CT HEAD WO EXAM: CT HEAD WO CLINICAL HISTORY: HEADACHE R51.9. TECHNIQUE: Imaging Protocol: Axial computed tomography images with coronal and sagittal reformatted images were created and reviewed COMPARISON: No exams were available for comparison FINDINGS: There are no skull fractures. There is no fluid in the visualized paranasal sinuses. There is no evidence of intracranial hemorrhage, mass effect, or shift of midline structures. There are no extra-axial fluid collections. The ventricles are not enlarged or shifted and there is no blo od within the ventricular system nor within the basal cisterns. The small area of hypodensity in the lateral left basal ganglia measuring 6 x 5 mm, possibly lacunar infarct versus just exaggerated CSF space or sub lenticular cyst IMPRESSION: No obvious acute intracranial findings on this noninfused CT scan of the brain. Left-sided finding as above. If clinically indicated follow-up MRI with diffusion imaging can be per formed for added sent and specificity RADIATION DOSE DELIVERED: 637.27mGy.cm Total DLP DATA REPOSITORY: All CT scans at this facility are submitted to the National Radiology Data Registry (NRDR) Dose Index Registry (DIR) with the [employer] (ACR). RADIATION OPTIMIZATION: All CT scans at this facility use at least one of these dose optimization te chniques: automated exposure control; mA and/or kV adjustment per patient size (includes targeted exa ms where dose is matched to clinical indication); or iterative reconstruction.
== END 2022-12-12 02:44 ==
PROVIDERS: PCP Nurse Practitioner Family; Visit Provider Nurse Practitioner Family
DX: Z12.31 Encounter for screening mammogram for malignant neoplasm of breast (principal); R51.9 Headache, unspecified; R93.0 Abnormal findings on diagnostic imaging of skull and head, not elsewhere classified
CPT/HCPCS: 77063; 77067; 70450

== ENCOUNTER 2022-12-12 14:03 | Outpatient (RCR) | payer SELFPAY ==
[2022-11-13 00:18] VITALS: BP 156/75; PULSE 86
[2022-11-14 14:40] VITALS: BP 143/68; PULSE 84
[2022-11-16 14:09] VITALS: BP 153/70; PULSE 90
[2022-11-21 14:26] VITALS: BP 149/64; PULSE 79
[2022-11-23 14:16] VITALS: BP 144/71; PULSE 79
[2022-11-30 14:45] VITALS: BP 143/66; PULSE 78
[2022-12-12 14:09] VITALS: BP 129/86; PULSE 81
== END 2022-12-13 23:59 | disposition home or self-care (01) ==
LOC: CR 14:03
PROVIDERS: PCP Nurse Practitioner Family; Visit Provider Internal Medicine Cardiovascular Disease

== ENCOUNTER 2023-01-11 13:58 | Outpatient (RCR) | payer SELFPAY ==
[2022-12-14 00:08] VITALS: BP 129/86; PULSE 81
[2022-12-19 14:57] VITALS: BP 129/65; PULSE 77
[2022-12-21 14:26] VITALS: BP 146/70; PULSE 75
[2022-12-28 14:15] VITALS: BP 121/66; PULSE 78
[2023-01-09 14:10] VITALS: BP 138/70; PULSE 89
[2023-01-11 13:51] VITALS: BP 133/62; PULSE 85
== END 2023-01-12 23:59 | disposition home or self-care (01) ==
LOC: CR 13:58
PROVIDERS: PCP Nurse Practitioner Family; Visit Provider Internal Medicine Cardiovascular Disease
DX: R69 Illness, unspecified (principal)

== ENCOUNTER 2023-01-25 14:03 | Outpatient (RCR) | payer SELFPAY ==
[2023-01-13 00:04] VITALS: BP 133/62; PULSE 85
[2023-01-18 14:11] VITALS: BP 157/74; PULSE 71
== END 2023-02-12 23:59 | disposition home or self-care (01) ==
LOC: CR 14:03
PROVIDERS: PCP Nurse Practitioner Family; Visit Provider Internal Medicine Cardiovascular Disease
DX: R69 Illness, unspecified (principal)

== ENCOUNTER 2023-03-15 14:00 | Outpatient (RCR) | payer SELFPAY ==
[2023-02-13 00:11] VITALS: BP 157/74; PULSE 71
[2023-02-20 15:04] VITALS: BP 141/74; PULSE 85
[2023-02-22 14:51] VITALS: BP 131/78; PULSE 86
[2023-02-27 14:44] VITALS: BP 131/68; PULSE 82
[2023-03-01 14:48] VITALS: BP 144/81; PULSE 81
[2023-03-08 14:17] VITALS: BP 141/63; PULSE 87
[2023-03-15 15:08] VITALS: BP 128/69; PULSE 75
== END 2023-03-15 23:59 | disposition home or self-care (01) ==
LOC: CR 14:00
PROVIDERS: PCP Nurse Practitioner Family; Visit Provider Internal Medicine Cardiovascular Disease
DX: R69 Illness, unspecified (principal)

== ENCOUNTER 2023-03-27 14:00 | Outpatient (RCR) | payer SELFPAY ==
[2023-03-16 00:06] VITALS: BP 128/69; PULSE 75
[2023-03-20 14:00] VITALS: BP 108/63; PULSE 85
[2023-03-22 14:30] VITALS: BP 117/69; PULSE 84
== END 2023-04-14 23:59 | disposition home or self-care (01) ==
LOC: CR 14:00
PROVIDERS: PCP Nurse Practitioner Family; Visit Provider Internal Medicine Cardiovascular Disease
DX: R69 Illness, unspecified (principal)

== ENCOUNTER 2023-05-10 14:10 | Outpatient (RCR) | payer SELFPAY ==
[2023-04-15 00:03] VITALS: BP 117/69; PULSE 84
[2023-04-24 14:21] VITALS: BP 158/89; PULSE 81
[2023-05-01 14:05] VITALS: BP 133/67; PULSE 77
[2023-05-08 14:06] VITALS: BP 160/74; PULSE 86
[2023-05-10 14:15] VITALS: BP 123/60; PULSE 79
== END 2023-05-15 23:59 | disposition home or self-care (01) ==
LOC: CR 14:10
PROVIDERS: PCP Nurse Practitioner Family; Visit Provider Internal Medicine Cardiovascular Disease
DX: R69 Illness, unspecified (principal)

== ENCOUNTER 2023-08-09 15:38 | Outpatient (REF) | payer MEDICARE, SELFPAY ==
[2023-08-09 21:58] LABS: HCT 40.9 % (36.0-46.0); HGB 13.5 g/dL (11.2-15.7); MCH 31.5 pg (27.0-33.0); MCV 95 fL (80-95); Platelet Count 304 10^3/uL (130-400); RBC 4.29 10^6/uL (3.93-5.22); RDW 14.1 % (11.7-14.6); RDW-SD 49.6 fL; WBC 4.81 10^3/uL (4.4-10.8)
[2023-08-09 22:32] LABS: Calculated LDL 131 mg/dL (<100); Cholesterol 247 mg/dL (<200); Ferritin 53 ng/mL (8-252); HDL Cholesterol 95 mg/dL (40-60); Triglyceride 105 mg/dL (<150)
== END 2023-08-09 15:39 | disposition home or self-care (01) ==
LOC: NCHCN 15:38
PROVIDERS: PCP Nurse Practitioner Family; Visit Provider Nurse Practitioner Family
DX: I25.2 Old myocardial infarction (principal)
CPT/HCPCS: 80053; 80061; 85027; 82728; 83540; 83550

== ENCOUNTER → 2023-08-20 02:21 | Outpatient (CLI) | payer MEDICARE, SELFPAY ==
--- NOTE | 2023-08-20 | DI.RAD_ITS ---
Exam(s) XR LUMBAR SPINE COMPLETE EXAM: XR LUMBAR SPINE COMPLETE CLINICAL HISTORY: LOW BACK PAIN, M54.50. TECHNIQUE: 2D digital imaging was performed. Five views. COMPARISON: CT CT ABDOMEN PELVIS W from 07/06/2021 CR XR DEXA BONE DENSITY W/WO BOUCHRA from 02/17/2022 FINDINGS: BONES: No fracture or destructive lesion. Vertebral body heights are maintained. Small endplate oste ophytes in the lumbar region. More prominent osteophytes in the thoracic region. DISKS: Intervertebral disc spaces are maintained. ALIGNMENT: Stable mild L5-S1 spondylolisthesis secondary to facet joint degenerative changes. SOFT TISSUE: The aorta is heavily calcified. IMPRESSION: Degenerative changes greatest of the facet joints at L5-S1 causing mild, grade 1 spondylolisthesis. DATA REPOSITORY: RADIATION DOSE DELIVERED:
--- NOTE | 2023-08-20 | DI.RAD_ITS ---
Exam(s) XR HIP LT COMPLETE AP PELVIS EXAM: XR HIP LT COMPLETE AP PELVIS CLINICAL HISTORY: LT HIP PAIN, M25.552. TECHNIQUE: 2D digital imaging was performed. Two views. COMPARISON: No exams were available for comparison FINDINGS: BONES: No acute fracture is present. No bony destructive lesion is seen. JOINTS: No dislocation present. The hip joint spaces are maintained. No significant periarticular spurring. SI joints and pubic symphysis are unremarkable. SOFT TISSUE: Normal. IMPRESSION: Unremarkable radiographs of the left hip. Unremarkable radiographs of the pelvis DATA REPOSITORY: RADIATION DOSE DELIVERED:
== END ==
PROVIDERS: PCP Nurse Practitioner Family; Visit Provider Nurse Practitioner Family
DX: M47.817 Spondylosis without myelopathy or radiculopathy, lumbosacral region (principal); M25.552 Pain in left hip
CPT/HCPCS: 72110; 73502

== ENCOUNTER 2024-03-21 01:16 | Outpatient (CLI) | payer MEDICARE, SELFPAY ==
[2024-03-21 13:15] LABS: HCT 35.4 % (36.0-46.0); HGB 11.8 g/dL (11.2-15.7); MCH 32.6 pg (27.0-33.0); MCHC 33.3 % (32.0-36.0); MCV 98 fL (80-95); MPV 9.3 fL (8.0-11.0); Platelet Count 322 10^3/uL (130-400); RBC 3.62 10^6/uL (3.93-5.22); RDW 13.3 % (11.7-14.6); RDW-SD 47.9 fL; WBC 4.37 10^3/uL (4.4-10.8)
[2024-03-21 13:42] LABS: ALT 26 U/L (14-59); AST 31 U/L (15-37); Alkaline Phosphatase 86 U/L (46-116); Anion Gap 8.7 mmol/L (3-11); BUN 7 mg/dL (7-18); Bilirubin, Total 0.37 mg/dL (0.2-1.0); CO2 27.3 mmol/L (21.0-32.0); CREATININE 0.9 mg/dL (0.55-1.02); Calcium 9.1 mg/dL (8.5-10.1); Chloride 103 mmol/L (98-107); Estimated GFR 68.35 (mL/min/1.73m2); Glucose 90 mg/dL (74-106); Potassium 3.6 mmol/L (3.5-5.1); Sodium 139 mmol/L (136-145); TSH (W/Ref FT4) 0.89 uIU/mL (0.36-3.74); Total Protein 7.2 g/dL (6.4-8.2)
== END 2024-03-21 01:17 | disposition home or self-care (01) ==
LOC: LBO 01:16
PROVIDERS: PCP Nurse Practitioner Family; Visit Provider Nurse Practitioner Family
DX: R41.3 Other amnesia (principal)
CPT/HCPCS: 36415; 80053; 85027; 84443

== ENCOUNTER 2024-04-03 01:22 | Outpatient (CLI) | payer MEDICARE, SELFPAY ==
--- NOTE | 2024-04-03 | DI.CT_ITS ---
Exam(s) CT BRAIN NECK CTA EXAM: CT BRAIN NECK CTA c CLINICAL HISTORY: SYNCOPE AND COLLAPSE R55 BRIEF LOSS OF CONSCIOUSNESS. TECHNIQUE: Imaging Protocol: Axial CT angiography was performed with multi-slice acquisition and mu lti-planar and/or 3D reconstructions. CONTRAST MATERIAL: Intravenous: Omnipaque 350 Contrast volume:structured data in ml COMPARISON: CT CT HEAD WO from 12/12/2022 FINDINGS: CTA Neck W: Aortic arch anatomy: The aortic arch anatomy is conventional and there is no significant stenosis at the origin of the great vessels off of the aortic arch. No intimal flap evident. Anterior circulation: Both common carotid arteries ascend with normal luminal diameters. There is some calcified plaque the level the left carotid bulb and proximal left ICA. The amount of s tenosis is estimated approximately 10-20 percent. No dissection. Left ICA above this level in the nec k is nicely patent. On the right side there is more prominent calcified plaque at the carotid bulb-proximal right ICA. Am ount of stenosis at this level on the right side is approximately 70 percent. No dissection. Posterior circulation: Both vertebral arteries originate in conventional fashion off of the subclavian arteries and there is no prominent stenosis at the origin of the vertebral arteries. Both vertebral arteries exhibit normal luminal diameters within the foramen transversarium. No evidence of significant stenosis nor thrombosis nor dissection of the vertebral arteries. Both vertebral arteries contribute to the formation of the basilar artery at the skull base. CTA Brain W: Anterior circulation: Both internal carotid arteries are patent in the skull base-carotid canals as well as within the cave rnous sinuses. There is mural calcification of the intra cavernous ICAs but no critical stenosis at t hese levels. Supraclinoid aspects of the internal carotid arteries are patent. The left A1 segment is dominant. Ri ght A1 segment is not seen. Both anterior cerebral arteries are patent and there is no aneurysm at th e level of the anterior communicating artery. Both middle cerebral arteries are patent with no evidence of significant stenosis nor intraluminal th rombus. There also no aneurysms of these vessels. Posterior circulation: The basilar artery ascends in the midline. Distally it gives off patent bilateral superior cerebella r arteries. Above this level the basilar artery terminates as patent bilateral posterior cerebral arteries. There is no evidence of aneurysm at the tip of the basilar artery nor elsewhere in the [id number] is. CT BRAIN: There is no evidence of intracranial hemorrhage, mass effect, or shift of midline structures. There are no extra-axial fluid collections. Ventricles are not enlarged or shifted. There are no ring enh ancing lesions in the brain and no abnormal meningeal enhancement. IMPRESSION: 1. There is significant calcified plaque at the right carotid bifurcation and proximal right ICA. Est imated approximately 70 percent stenosis at this level. Significantly less stenosis seen on the oppos ite-left side at same level, estimated approximately 10-20 percent stenosis on the left side. 2. Patent vertebral arteries. No evidence of stenosis nor dissection. 3. Patent intracranial arteries. The left A1 segment is dominant and supplies both anterior cerebral arteries. 4. No ring enhancing lesions in the brain. No other obvious intracranial findings. RADIATION DOSE DELIVERED: 1,865.56mGy.cm Total DLP DATA REPOSITORY: All CT scans at this facility are submitted to the National Radiology Data Registry (NRDR) Dose Index Registry (DIR) with the [employer] (ACR). RADIATION OPTIMIZATION: All CT scans at this facility use at least one of these dose optimization te chniques: automated exposure control; mA and/or kV adjustment per patient size (includes targeted exa ms where dose is matched to clinical indication); or iterative reconstruction.
[2024-04-03] MEDS: Normal Saline - Diluent 50 ML VIAL IJ (09:01)
[2024-04-03] MEDS: Omnipaque 350 MG/ML 100 ML BTL IJ (09:02)
== END 2024-04-03 01:42 ==
LOC: DI 01:22
PROVIDERS: PCP Nurse Practitioner Family; Visit Provider Nurse Practitioner Family
DX: R55 Syncope and collapse (principal)
CPT/HCPCS: 70496; 70498; J3490

== ENCOUNTER 2024-05-02 09:54 | Outpatient (CLI) | payer MEDICARE, SELFPAY ==
[2024-05-02 10:10] LABS: Abs Immature Grans 0.01 10^3/uL (0.0-0.06); Absolute Basophil Count 0.03 10^3/uL (0.0-0.2); Absolute Eosinophil Count 0.18 10^3/uL (0.0-0.7); Absolute Lymphocyte Count 1.97 10^3/uL (1.2-3.4); Absolute Monocyte Count 0.52 10^3/uL (0.1-0.8); Absolute Neutrophil Count 3.17 10^3/uL (1.2-6.7); Basophils % 0.5 %; Eosinophils % 3.1 %; HCT 34.6 % (36.0-46.0); HGB 11.2 g/dL (11.2-15.7); Immature Grans % 0.2 %; Lymphocytes % 33.5 %; MCHC 32.4 % (32.0-36.0); MCV 99 fL (80-95); MPV 9.2 fL (8.0-11.0); Monocytes % 8.8 %; Neutrophils % 53.9 %; Platelet Count 262 10^3/uL (130-400); RDW 12.9 % (11.7-14.6); RDW-SD 46.4 fL; WBC 5.88 10^3/uL (4.4-10.8)
[2024-05-02 11:11] LABS: ALT 16 U/L (14-59); AST 18 U/L (15-37); Albumin 3.4 g/dL (3.4-5.0); Alkaline Phosphatase 80 U/L (46-116); Anion Gap 9.4 mmol/L (3-11); BUN 15 mg/dL (7-18); Bilirubin, Total 0.27 mg/dL (0.2-1.0); CO2 27.6 mmol/L (21.0-32.0); Calcium 9.4 mg/dL (8.5-10.1); Chloride 102 mmol/L (98-107); Estimated GFR 60.23 (mL/min/1.73m2); Glucose 96 mg/dL (74-106); Potassium 5.5 mmol/L (3.5-5.1); Sodium 139 mmol/L (136-145); Total Protein 7.6 g/dL (6.4-8.2)
[2024-05-02 11:12] LABS: C-Reactive Protein < 0.50 mg/dL (<or=0.5)
[2024-05-02 11:18] LABS: TSH (W/Ref FT4) 0.73 uIU/mL (0.36-3.74)
[2024-05-07 12:52] LABS: Adalimumab QN with Reflex Ab 25.5 mcg/mL
== END 2024-05-02 09:55 | disposition home or self-care (01) ==
LOC: LBO 09:55
PROVIDERS: PCP Nurse Practitioner Family; Visit Provider Internal Medicine Gastroenterology
DX: R41.3 Other amnesia (principal); K50.90 Crohn's disease, unspecified, without complications
CPT/HCPCS: 36415; 80053; 83520; 84443; 85025; 86140

== ENCOUNTER 2024-05-16 08:04 | Outpatient (CLI) | payer MEDICARE, SELFPAY ==
--- NOTE | 2024-05-16 08:28 | W.CARDEVENT ---
Date of service: 05/16/24 Time of Service: 08:28 Cardiac Event Recorder Referring Provider:: Kendra Cardoso Indications:: Syncope Cardiac Event Note: This is a cardiac event monitor. Patient was monitored for 13 days. Rhythm throughout was sinus with an average heart rate of 78. Minimum was 35, maximum 126 There were very rare isolated atrial and ventricular ectopic beats There was no atrial fibrillation, no high-grade AV block, no pauses greater than 3 seconds Symptoms were reported which had no correlation to any dysrhythmia
== END 2024-05-16 08:05 | disposition home or self-care (01) ==
LOC: CARDOPNVT 08:04
PROVIDERS: PCP Nurse Practitioner Family; Referring Provider Nurse Practitioner Family; Visit Provider Internal Medicine Cardiovascular Disease
DX: R55 Syncope and collapse (principal)
CPT/HCPCS: 93010; 93246; 93248

== ENCOUNTER 2024-07-04 22:53 | Outpatient (REF) | payer MEDICARE, SELFPAY ==
[2024-07-04 23:19] LABS: COMMENT (LAB VIEW ONLY) 38.51 mg/dL; Microalb ug/mg Crea 47.8 ug/mg Cr
== END 2024-07-04 22:54 | disposition home or self-care (01) ==
LOC: NCHCN 22:53
PROVIDERS: PCP Nurse Practitioner Family; Visit Provider Nurse Practitioner Family
DX: I10 Essential (primary) hypertension (principal)
CPT/HCPCS: 82043; 82570

== ENCOUNTER 2024-07-15 02:25 | Outpatient (CLI) | payer MEDICARE, SELFPAY ==
[2024-07-15 08:19] LABS: HCT 34.8 % (36.0-46.0); HGB 10.9 g/dL (11.2-15.7); MCHC 31.3 % (32.0-36.0); MCV 99 fL (80-95); MPV 9.2 fL (8.0-11.0); Platelet Count 236 10^3/uL (130-400); RBC 3.52 10^6/uL (3.93-5.22); RDW 13.7 % (11.7-14.6); RDW-SD 49.6 fL; WBC 4.89 10^3/uL (4.4-10.8)
[2024-07-15 08:48] LABS: Potassium 5.2 mmol/L (3.5-5.1)
[2024-07-15 09:14] LABS: Microalb ug/mg Crea 5.9 ug/mg Cr
== END 2024-07-15 02:26 | disposition home or self-care (01) ==
LOC: LBO 02:25
PROVIDERS: PCP Nurse Practitioner Family; Visit Provider Nurse Practitioner Family
DX: R71.8 Other abnormality of red blood cells (principal)
CPT/HCPCS: 36415; 85027; 82043; 82570; 84132

== ENCOUNTER 2024-07-25 00:18 | Outpatient (CLI) | payer MEDICARE, SELFPAY ==
--- NOTE | 2024-07-25 | DI.MRI_ITS ---
Exam(s) MR BRAIN WO/W EXAM: MR BRAIN WO/W CLINICAL HISTORY: R41.3 Other amnesia,MEMORY IMPAIRMENT TECHNIQUE: Multiplanar multisequence MRI of the brain was performed. CONTRAST MATERIAL: IV Contrast: 9 mL of Dotarem contrast administered. COMPARISON: CT CT HEAD WO from 12/12/[address] BRAIN NECK CTA from 04/03/2024 FINDINGS: VENTRICLES AND EXTRA AXIAL SPACES: Normal in size and morphology for the patient's age. HEMORRHAGE: None. CEREBRAL PARENCHYMA: No focus of restricted diffusion to suggest acute infarct. No space-occupying le hardeep identified. There are areas of hyperintense signal seen in the white matter on the FLAIR and T2 weighted images most suggestive of chronic microvascular ischemic disease. MIDLINE SHIFT: None. BRAINSTEM/CEREBELLUM: Normal. CALVARIUM: Normal. ENHANCEMENT: No suspicious enhancement identified. VISUALIZED PARANASAL SINUSES/MASTOIDS: Clear. [place]: Normal flow void. PITUITARY GLAND: Unremarkable. OTHER FINDINGS: There is prominence of the osteophyte disc complex at C3-4 with 2 mm anterolisthesis of C3 on C4. This does result in narrowing of the central spinal canal with mild compression of the s [place] cord. There does appear to be normal signal in the spinal cord. IMPRESSION: 1. Age-related global cerebral atrophy and chronic microvascular ischemic disease. 2. No evidence of an acute infarct, intracranial mass or enhancing lesion. 3. C3-4 central spinal canal stenosis. MRI of the cervical spine may be obtained for further charact erization. Unexpected findings DATA REPOSITORY:
[2024-07-25] MEDS: Gadoterate meglumine 20 ML SYRINGE 9 ML IVP (08:06)
[2024-07-25] MEDS: Normal Saline Flush 10 ML SYR IVP (08:07)
== END 2024-07-25 00:38 ==
PROVIDERS: PCP Nurse Practitioner Family; Visit Provider Radiology Diagnostic Ultrasound
DX: I67.82 Cerebral ischemia (principal); M48.02 Spinal stenosis, cervical region
CPT/HCPCS: 70553

== ENCOUNTER 2024-07-28 02:06 | Outpatient (CLI) | payer MEDICARE, SELFPAY ==
--- NOTE | 2024-07-28 08:02 | DI.MAMMO_ITS ---
Exam(s) MAMMO SCREENING EXAM: MAMMO SCREENING CLINICAL HISTORY: Screening, Z12.39 TECHNIQUE: Mammograms were interpreted according to the usual protocol including computer analysis w [employer] CAD system, tomosynthesis and C-view imaging. COMPARISON: 2015 through 2022 FINDINGS: The breasts are composed of scattered fibroglandular densities, Breast Density category B. No suspicious masses or suspicious microcalcifications are seen. No skin thickening or abnormal axillary lymph nodes are seen. There has been no significant change from prior exams. IMPRESSION: BI-RADS Category 1, Negative mammogram Yearly screening mammography is recommended. Breast Density - Category B, scattered fibroglandular densities. A negative radiographic report should not delay biopsy if a dominant or clinically suspicious mass is present. Up to ten percent of cancers are not identified on mammography. A negative report may reinforce clinical impression. Adenosis and dense breasts may obscure an underlying neoplasm. False positive reports average 6 to 10%. Patient will receive a letter notifying them of these results.
== END 2024-07-28 02:26 ==
LOC: DI 02:07
PROVIDERS: PCP Nurse Practitioner Family; Visit Provider Nurse Practitioner Family
DX: R41.3 Other amnesia (principal); Z12.31 Encounter for screening mammogram for malignant neoplasm of breast; R92.323 Mammographic fibroglandular density, bilateral breasts
CPT/HCPCS: 77063; 77067

== ENCOUNTER 2024-07-29 15:03 | Outpatient (CLI) | payer MEDICARE, SELFPAY ==
[2024-07-29 15:07] LABS: Calculated LDL 69 mg/dL (<100); Cholesterol 169 mg/dL (<200); Ferritin 82 ng/mL (8-252); HDL Cholesterol 86 mg/dL (40-60); Triglyceride 73 mg/dL (<150); Vitamin B12 364 pg/mL (193-986)
[2024-07-29 15:09] LABS: Folate > 20.0 ng/mL (8.6-20.0)
[2024-07-29 17:21] LABS: Iron 60 ug/dL (50-170); Total Iron Binding Capacity 337 ug/dL (250-450); Transferrin Sat 18 % (15-50)
== END 2024-07-29 15:04 | disposition home or self-care (01) ==
LOC: LBO 15:04
PROVIDERS: PCP Nurse Practitioner Family; Visit Provider Nurse Practitioner Family
DX: E78.5 Hyperlipidemia, unspecified (principal); D64.9 Anemia, unspecified
CPT/HCPCS: 36415; 80061; 82607; 82728; 82746; 83540; 83550

== ENCOUNTER 2024-11-11 16:06 | Outpatient (REF) | payer MEDICARE, SELFPAY | END 2024-11-11 16:07 | disposition home or self-care (01) | LOC: LBN 16:06 | PROVIDERS: PCP Nurse Practitioner Family; Visit Provider Family Medicine | DX: B37.31 Acute candidiasis of vulva and vagina (principal) | CPT/HCPCS: 87480; 87510; 87660 ==

== ENCOUNTER → 2025-01-08 07:15 | Outpatient (BNVA) | payer MEDICARE, SELFPAY | PROVIDERS: PCP Nurse Practitioner Family; Referring Provider Nurse Practitioner Family; Visit Provider Surgery | DX: K64.8 Other hemorrhoids (principal); K50.90 Crohn's disease, unspecified, without complications | CPT/HCPCS: 99214 ==

== ENCOUNTER 2025-01-09 11:23 | Outpatient (CLI) | payer MEDICARE, SELFPAY ==
[2025-01-09 11:14] LABS: Abs Immature Grans 0.02 10^3/uL (0.0-0.06); Absolute Basophil Count 0.03 10^3/uL (0.0-0.2); Absolute Eosinophil Count 0.09 10^3/uL (0.0-0.7); Absolute Lymphocyte Count 2.11 10^3/uL (1.2-3.4); Absolute Monocyte Count 0.41 10^3/uL (0.1-0.8); Absolute Neutrophil Count 3.27 10^3/uL (1.2-6.7); Basophils % 0.5 %; Eosinophils % 1.5 %; HGB 10.4 g/dL (11.2-15.7); Immature Grans % 0.3 %; Lymphocytes % 35.6 %; MCH 30.9 pg (27.0-33.0); MCHC 32.5 % (32.0-36.0); MCV 95 fL (80-95); MPV 9.1 fL (8.0-11.0); Monocytes % 6.9 %; Neutrophils % 55.2 %; Platelet Count 343 10^3/uL (130-400); RBC 3.37 10^6/uL (3.93-5.22); RDW 13.7 % (11.7-14.6); RDW-SD 47.6 fL; WBC 5.93 10^3/uL (4.4-10.8)
[2025-01-09 11:58] LABS: Iron 47 ug/dL (50-170); Total Iron Binding Capacity 356 ug/dL (250-450); Transferrin Sat 13 % (15-50)
[2025-01-09 12:10] LABS: Ferritin 58 ng/mL (8-252)
== END 2025-01-09 11:24 | disposition home or self-care (01) ==
LOC: LBO 11:23
PROVIDERS: PCP Nurse Practitioner Family; Visit Provider Nurse Practitioner Family
DX: R71.8 Other abnormality of red blood cells (principal)
CPT/HCPCS: 36415; 82728; 83540; 83550; 85025

== ENCOUNTER 2025-01-14 02:15 | Outpatient (CLI) | payer MEDICARE, SELFPAY ==
--- NOTE | 2025-01-14 | DI.MRI_ITS ---
Exam(s) MR CERVICAL SPINE WO EXAM: MR CERVICAL SPINE WO CLINICAL HISTORY: SPINAL STENOSIS OF CERVICAL REGION M48.02 TECHNIQUE: Multiplanar multisequence MRI of the cervical spine was performed without intravenous contrast. COMPARISON: CT CT BRAIN NECK CTA from 04/03/2024 MR MR BRAIN WO/W from 07/25/2024 FINDINGS: BONES: Vertebral body heights are maintained. There is an upper thoracic levoscoliosis.. Bone marrow signal intensity is within normal limits. CERVICAL CORD: Craniovertebral junction is unremarkable. The cervical cord is normal size and signal intensity. SOFT TISSUES: Unremarkable. C1-2: Narrowing at the anterior arch of C1 and dens. Chronic bony fragment anterior to the dens. C2-3: No disc herniation or bulge is identified. No evidence of neural foraminal narrowing. No significant central canal stenosis. C3-4: Mild loss of disc height. broad-based disc osteophytes. Facet joint hypertrophy. There is narrowing of the AP dimension of the central canal and indentation on the cervical cord. No abnormal cord signal. AP dimension of the canal measures 6 millimeters. Bilateral neural foraminal encroachment. C4-5: Xgjc-tr-rthqnsye loss of disc height. Broad-based disc osteophytes. Facet degenerative changes. Narrowing of the AP dimension of the central canal with mild indentation on the anterior cord. A small amount of CSF remains present posterior to the cord. Bilateral neural foraminal encroachment. C5-6: Moderate loss of disc height. Broad-based disc osteophytes. Facet degenerative changes. Mild central canal stenosis. Bilateral neural foraminal encroachment. C6-7: Moderate loss of disc height. Broad-based disc osteophytes and facet degenerative changes. Slight central canal stenosis. Bilateral neural foraminal encroachment. C7-T1: No disc herniation or bulge is identified. No evidence of neural foraminal narrowing. No significant central canal stenosis. IMPRESSION: Multilevel degenerative disc changes and facet degenerative changes. There is multilevel bilateral neural foraminal narrowing. There is central canal stenosis which is greatest at C3-4. DATA REPOSITORY:
== END 2025-01-14 02:35 ==
LOC: DI 02:15
PROVIDERS: PCP Nurse Practitioner Family; Visit Provider Nurse Practitioner Family
DX: M48.02 Spinal stenosis, cervical region (principal)
CPT/HCPCS: 72141

== ENCOUNTER 2025-05-16 11:18 | Emergency (ER) | payer MEDICARE, SELFPAY ==
[2025-05-16 11:22] VITALS: BP 161/76; PULSE 87; RESP 12; TEMP 36.6; O2SAT 97
--- NOTE | 2025-05-16 12:30 | DI.CT_ITS ---
Exam(s) CT ABDOMEN PELVIS W EXAM: CT ABDOMEN PELVIS W CLINICAL HISTORY: abdominal lower with rectal bleeding. TECHNIQUE: Imaging Protocol: Axial computed tomography images with coronal and sagittal reformatted images were created and reviewed CONTRAST MATERIAL: Intravenous: Omnipaque-350 75cc Oral: None COMPARISON: CT CT ABDOMEN PELVIS W from 07/06/2021 FINDINGS: VISUALIZED LUNG BASES: No nodules nor pleural effusions evident. ABDOMEN: There is no ascites. LIVER: There are no focal hepatic lesions evident. No dilated intrahepatic ducts. GALLBLADDER/BILIARY: No obvious gallbladder pathology. CBD is not dilated. PANCREAS: No evidence of pancreatic mass nor dilatation of the pancreatic duct. SPLEEN: Spleen is not enlarged. No obvious intrasplenic lesions. Splenic and portal veins are patent. ADRENALS: There are no significant adrenal masses. KIDNEYS:Small sub cm cyst upper pole right kidney again noted. Does not require further workup. No solid renal masses. No calculi nor hydronephrosis.. ABDOMINAL AORTA: Calcified but not enlarged. Common iliac arteries are also heavily calcified but not enlarged. LYMPH NODES:There is no retroperitoneal nor paraaortic adenopathy. Shotty bilateral inguinal lymph nodes are unchanged from 202. ABDOMINAL WALL: No evidence of significant anterior abdominal wall nor inguinal hernia. GI: No evidence of small-bowel obstruction, free air, nor abscess. There is abundant fecal material noted in the colon. There is, however, no obvious colitis pattern, as was evident in 202. There is sigmoid diverticulosis without evidence of acute diverticulitis. PELVIS: GI: No evidence of appendicitis. LYMPH NODES: As above REPRODUCTIVE: No abnormal adnexal masses. URINARY BLADDER: Moderately distended. No calculi nor obvious masses evident OSSEOUS: No fractures and no significant osseous lesions. Increased density both femoral heads. Cannot exclude element of avascular necrosis. There are minimal if any significant degenerative changes in the hips. IMPRESSION: 1. Compared to the prior CT scan of 07/06/2021 the previously present colitis pattern is less evident. However, there is presently circumferential thickening of the rectum consistent with colitis or proctitis.. 2. There is diverticulosis of the sigmoid but no evidence of acute diverticulitis and also no evidence of acute appendicitis. 3. Mildly distended urinary bladder. Preliminary V rad report was reviewed. RADIATION DOSE DELIVERED: 181.73mGy.cm Total DLP DATA REPOSITORY: All CT scans at this facility are submitted to the National Radiology Data Registry (NRDR) Dose Index Registry (DIR) with the [employer] (ACR). RADIATION OPTIMIZATION: All CT scans at this facility use at least one of these dose optimization techniques: automated exposure control; mA and/or kV adjustment per patient size (includes targeted exams where dose is matched to clinical indication); or iterative reconstruction.
[2025-05-16 13:42] LABS: Abs Immature Grans 0.01 10^3/uL (0.0-0.06); HCT 34.4 % (36.0-46.0); HGB 11.3 g/dL (11.2-15.7); Immature Grans % 0.2 %; MCH 30.9 pg (27.0-33.0); MCHC 32.8 % (32.0-36.0); MCV 94 fL (80-95); MPV 9.1 fL (8.0-11.0); Platelet Count 306 10^3/uL (130-400); RBC 3.66 10^6/uL (3.93-5.22); RDW 13.3 % (11.7-14.6); RDW-SD 46.0 fL; WBC 5.63 10^3/uL (4.4-10.8)
[2025-05-16 13:58] LABS: ALT 14 U/L (14-59); AST 18 U/L (15-37); Albumin 3.7 g/dL (3.4-5.0); Alkaline Phosphatase 78 U/L (46-116); Anion Gap 9.9 mmol/L (3-11); BUN 5 mg/dL (7-18); Bilirubin, Total 0.3 mg/dL (0.2-1.0); CO2 28.1 mmol/L (21.0-32.0); Calcium 9.3 mg/dL (8.5-10.1); Chloride 101 mmol/L (98-107); Glucose 99 mg/dL (74-106); Lipase 26 U/L (<78); Potassium 4.0 mmol/L (3.5-5.1); Sodium 139 mmol/L (136-145); Total Protein 8.6 g/dL (6.4-8.2)
[2025-05-16] MEDS: Omnipaque 350 MG/ML 100 ML BTL IJ (14:08)
[2025-05-16] MEDS: Normal Saline Flush 10 ML SYR IVP (14:09)
[2025-05-16] MEDS: Normal Saline - Diluent 50 ML VIAL IJ (14:09)
--- NOTE | 2025-05-16 14:54 | DI.VRAD_ITS ---
PROCEDURE INFORMATION: Exam: CT Abdomen And Pelvis With Contrast Exam date and time: 05/16/2025 2:08 PM Age: 74 years old Clinical indication: Abdominal pain; Other: Lower with rectal bleeding TECHNIQUE: Imaging protocol: Computed tomography of the abdomen and pelvis with contrast. Contrast material: OMNI 350; Contrast volume: 75 ml; Contrast route: INTRAVENOUS (IV); COMPARISON: CT ABDOMEN PELVIS W 07/06/2021 6:57 AM FINDINGS: Liver: Normal. No mass. Gallbladder and biliary ducts: Normal. No calcified stones. No ductal dilation. Pancreas: Normal. No ductal dilation. Spleen: Normal. No splenomegaly. Adrenal glands: Normal. No mass. Kidneys and ureters: Cysts noted at both kidneys largest 2.4 cm. No hydronephrosis. No ureteral stones. Stomach and bowel: Wall thickening with surrounding inflammatory change at the rectosigmoid consistent with a nonspecific colitis or proctitis. Colonic diverticula present. No evidence of acute diverticulitis at this time. No evidence of intestinal perforation or obstruction. Above average stool throughout the colon. Appendix: No evidence of appendicitis. Intraperitoneal space: Unremarkable. No free air. No significant fluid collection. Vasculature: Aorta demonstrates moderate atherosclerotic calcification. No abdominal aortic aneurysm. Lymph nodes: Unremarkable. No enlarged lymph nodes. Urinary bladder: Unremarkable as visualized. Reproductive: Unremarkable as visualized. Bones/joints: Grade 1 anterolisthesis L5-S1 which appears degenerative in nature. Soft tissues: Unremarkable. IMPRESSION: Wall thickening with surrounding inflammatory change at the rectosigmoid consistent with a nonspecific colitis or proctitis. Dictated and Authenticated by: Gabo Yeager MD. Orderin Ratna Gardner MD
--- NOTE | 2025-05-16 15:07 | W.ED.GENAD ---
Discharge Plan Disposition Patient Disposition: Home Discharge Details Clinical Impression: Pain in rectum, Crohn's colitis Primary Care Provider: Kendra Cardoso ED Provider: Kendra Segundo Home Meds and New Rx's Prescriptions: Continued fluticasone propionate [Allergy Relief (fluticasone)] 50 mcg/actuation spray,suspension 1 spray intranasal BID PRN Rx Instructions: administer into each nostril atorvastatin 40 mg tablet 80 mg PO DAILY Humira 20 mg/0.4 mL syringe kit 40 mg PO PRN PRN Patient Comments: takes SC every 7 days pramipexole 0.5 mg tablet 0.5 mg PO DAILY Patient Comments: TAKE 1 TABLET BY MOUTH EVERY NIGHT AT BEDTIME omeprazole 20 mg capsule,delayed release(DR/EC) 20 mg PO DAILY Patient Comments: TAKE 1 CAPSULE BY MOUTH DAILY cetirizine 10 mg tablet 10 mg PO DAILY PRN Patient Comments: TAKE 1 TABLET BY MOUTH DAILY NEEDED aspirin 81 mg Tablet,Delayed Release (Dr/Ec) 81 mg PO DAILY lisinopril 10 mg Tablet 10 mg PO DAILY Discharge Instructions Instructions: Proctitis, Inflammatory Bowel Disease (DC) Additional Instructions: Continue on your Humira Have a cup of prune juice in addition to your Metamucil daily Please follow-up with your architectural design lecturer on Sunday to schedule an appointment, this is very important given the longevity of symptoms Please return a stool sample soon as possible to have it tested Please return immediately should you have worsening pain, increased bleeding, fever, chills, or should any new concerns arise Please follow-up with primary care physician please Referrals: Kendra Cardoso [Primary Care Provider, Medicine] Discharge Data Discharge Date/Time-TO BE ENTERED AT DEPARTURE: 05/16/25 16:43 HPI General Date/Time Provider Initiated Documentation: 05/16/25 11:26. HPI Narrative: This 74-year-old female with history of Crohn's colitis on immunomodulators, cardiomyopathy, ST elevation NE, hypertension presents with report of rectal pain and bleeding for the past several months. She states that she saw her architectural design lecturer as well as our surgeon here in the hospital who prescribed steroid suppository that did not assist with her pain. She presents secondary to persistent and worsening discomfort with mucus and blood. She denies any fever or chills she has had some lower abdominal tenderness. She denies any flank pain or fever. She denies history of coagulopathy. She has been compliant with her Humira. Related Data Home Medications Medication Instructions Recorded Confirmed omeprazole 20 mg capsule,delayed 20 mg PO DAILY 07/06/21 05/16/25 release pramipexole 0.5 mg tablet 0.5 mg PO DAILY 07/06/21 05/16/25 aspirin 81 mg tablet,delayed 81 mg PO DAILY 09/26/21 05/16/25 release lisinopril 10 mg tablet 10 mg PO DAILY 09/26/21 05/16/25 adalimumab 20 mg/0.4 mL 40 mg PO PRN PRN 09/27/21 05/16/25 subcutaneous syringe kit (Humira) fluticasone propionate 50 1 spray intranasal BID PRN 11/22/21 05/16/25 mcg/actuation nasal spray,suspension (Allergy Relief (fluticasone)) atorvastatin 40 mg tablet 80 mg PO DAILY 12/30/24 05/16/25 cetirizine 10 mg tablet 10 mg PO DAILY PRN 01/08/25 05/16/25 Allergies Allergy/AdvReac Type Severity Reaction Status Date / Time clindamycin Allergy Unknown Unknown Verified 05/16/25 11: quinine Allergy Unknown Unknown Verified 05/16/25 11:25 simvastatin Allergy Unknown Unknown Verified 05/16/25 11:25 General Stated Complaint: GI Bleed MELINA: 3 Exam Narrative Exam Narrative: Alert and oriented female in no acute distress, suprapubic abdominal tenderness without rebound or guarding in the perirectal region there is no obvious rectal prolapse patient does not have an obvious external hemorrhoid but there is blood and mucus around her rectum, she has tenderness with rectal exam and mucus from her abdomen appreciated Course Vital Signs Vital signs: Vital Signs Temperature 36.6 C 05/16/25 11:22 Pulse 87 05/16/25 11:22 Respiratory Rate 12 05/16/25 11:22 Blood Pressure 161/76 H 05/16/25 11:22 Pulse Oximetry 97 05/16/25 11:22 Temperature 36.6 C 05/16/25 11:22 Pulse 87 05/16/25 11:22 Respiratory Rate 12 05/16/25 11:22 Blood Pressure 161/76 H 05/16/25 11:22 Blood Pressure Position Sitting 05/16/25 11:22 Pulse Oximetry 97 05/16/25 11:22 Oxygen Delivery Method Room Air 05/16/25 11:22 Oxygen Flow Rate 0 05/16/25 11:22 Lab/Test Results Lab/Test Results: Laboratory Tests Range/Units 05/16/25 13:35 WBC (4.4-10.8) 10^3/uL 5.63 RBC (3.93-5.22) 10^6/uL 3.66 L Hgb (11.2-15.7) g/dL 11.3 Hct (36.0-46.0) % 34.4 L MCV (80-95) fL 94 MCH (27.0-33.0) pg 30.9 MCHC (32.0-36.0) % 32.8 RDW (11.7-14.6) % 13.3 Plt Count (130-400) 10^3/uL 306 MPV (8.0-11.0) fL 9.1 Immature Gran % % 0.2 Neutrophils % % 60.8 Lymphocytes % % 29.1 Monocytes % % 7.6 Eosinophils % % 1.6 Basophils % % 0.7 Nucleated RBC % (0.0-0.3) % 0.0 Absolute Neutrophils (1.2-6.7) 10^3/uL 3.42 Absolute Lymphocytes (1.2-3.4) 10^3/uL 1.64 Absolute Monocytes (0.1-0.8) 10^3/uL 0.43 Absolute Eosinophils (0.0-0.7) 10^3/uL 0.09 Absolute Basophils (0.0-0.2) 10^3/uL 0.04 Sodium (136-145) mmol/L 139 Potassium (3.5-5.1) mmol/L 4.0 Chloride (98-107) mmol/L 101 Carbon Dioxide (21.0-32.0) mmol/L 28.1 Anion Gap (3-11) mmol/L 9.9 BUN (7-18) mg/dL 5 L Creatinine (0.55-1.02) mg/dL 0.9 Est GFR (CKD-EPI 2020) (mL/min/1.73m2) 67.92 Glucose (74-106) mg/dL 99 Calcium (8.5-10.1) mg/dL 9.3 Total Bilirubin (0.2-1.0) mg/dL 0.3 AST (15-37) U/L 18 ALT (14-59) U/L 14 Alkaline Phosphatase (46-116) U/L 78 Total Protein (6.4-8.2) g/dL 8.6 H Albumin (3.4-5.0) g/dL 3.7 Lipase (<78) U/L 26 Medical Decision Making Results: CT abdomen and pelvis shows rectosigmoid inflammation, no evidence of obstruction or obvious source of bleeding CBC and CMP without acute abnormality, stool samples pending Assessment and plan: Patient presenting with rectal pain and bleeding with mucus for the past several months and with bulging sensation in her rectum last evening I wonder if she could have had rectal prolapse there is no evidence of rectal prolapse at time of my assessment. Patient is hemodynamically stable. I did review CT abdomen pelvis there is evidence of rectosigmoid colitis, I wonder if this is her Crohn's disease especially with the mucus and blood. I did speak with Dr. Dumont on-call for GI at [facility] and she does not recommend any additional medications aside from patient's prescribed weekly Humira. Patient's [facility] architectural design lecturer is Dr. Miller and patient is encouraged to call on Sunday to schedule an appointment with Dr. Miller. I think it is important that she follow-up with GI. Dr. Dumont recommended stool cultures although patient is not having diarrhea. I did order outpatient stool sample for patient to return to her lab. Again there is no evidence of rectal prolapse at this time however this is certainly in the differential. There is no obvious evidence of a hemorrhoidal bleeding at time of my assessment. I do not feel like patient needs admission to the hospital she is not anticoagulated and otherwise hemodynamically stable with history of known Crohn's colitis. Return precautions reviewed and patient discharged home in stable condition with stable vitals, mildly hypertensive encouraged to follow-up with her PCP regarding blood pressure and her abdominal discomfort. I did consider steroid suppositories however patient states these were prescribed by her surgeon previously and were not helpful in alleviating her symptoms. PFSH All Active Problems (Updated 05/16/25 @ 16:20 by DANISH Reddy) Crohn's colitis (Acute) Pain in rectum (Acute) Carotid stenosis (Acute) Essential hypertension (Acute) PTSD (post-traumatic stress disorder) (Acute) Restless leg (Acute) Memory impairment (Acute) Brief loss of consciousness (Acute) Vertigo (Acute) Hemorrhoids (Acute) Cardiomyopathy (Acute) 07/06/21 [facility] believed to be stress induced Non-STEMI (non-ST elevated myocardial infarction) (Acute) 07/06/21 sent to [facility] from [facility] GERD (gastroesophageal reflux disease) (Chronic) Medical History (Updated 05/16/25 @ 16:20 by DANISH Reddy) Difficulty swallowing Microcytosis Weight loss Hyperkalemia HLD (hyperlipidemia) Crohn's disease on humira Surgical History (Updated 11/25/24 @ 15:48 by Marlene Katz RN) History of esophagogastroduodenoscopy (EGD) (~08/26/24) [facility] =inflammation History of colonoscopy (~08/26/24) [facility] bx normal internal hemorrhoids noted at this time diverticulosis in sigmoid H/O oophorectomy Social History Smoking/Tobacco Use Status: Former Tobacco Use Quit Date: 06/15/18 Quit status: quit date established Smoking risk assessment performed?: Yes Alcohol Intake: current Alcohol Intake frequency: 0-2 drinks per day Alcohol type: beer Drug use: Occasionally Substance use type: marijuana Do you feel safe at home: Yes Do you feel safe in your relationship?: Yes PAWSS Have you Been Recently Intoxicated or Drunk Within the Last 30 days?: No Have you Ever Experienced Previous Episodes of Alcohol Withdrawal?: No Have you ever Experienced Withdrawal Seizures?: No Have you ever Experienced Delirium Tremens(DT)s?: No Have you ever undergone Alcohol Rehabilitation Treatment (i.e, inpt ot outpatient treatment programs)?: No Have you ever Experienced Blackouts?: No Have you ever Combined Alcohol with other Downers within the last 90 days?: No Have you ever Combined Alcohol with any other Substance of Abuse during the last 90 days?: No Positive Blood Alcohol level on Presentation? [PCS.BAL]: No Evidence of Increased Autonomic Activity (i.e. HR>120, tremor, sweating, agitation, nausea)?: No Result: 0
[2025-05-16 15:35] LABS: C & S Indicated? No; RBC 0-2 HPF (0-2); WBC 0-2 HPF (0-5)
[2025-05-16 16:22] LABS: C-Reactive Protein < 0.50 mg/dL (<or=0.5)
== END 2025-05-16 16:43 | disposition home or self-care (01) ==
PROVIDERS: Emergency Provider Physician Assistant; PCP Nurse Practitioner Family
DX: K62.5 Hemorrhage of anus and rectum (principal); K50.10 Crohn's disease of large intestine without complications; K62.89 Other specified diseases of anus and rectum; R10.8A3 Suprapubic tenderness
CPT/HCPCS: 99284; 99285; 80053; 83690; 74177; 81003; 81015; 85025; 86140; J3490

== ENCOUNTER 2025-05-18 14:20 | Outpatient (REF) | payer MEDICARE, SELFPAY ==
[2025-05-19 23:09] LABS: Campylobacter PCR Negative (Negative); Shiga Toxin PCR Negative (Negative); Shigella/Enteroinvasive Ecoli Negative (Negative)
== END 2025-05-18 14:21 | disposition home or self-care (01) ==
LOC: NCHCN 14:20
PROVIDERS: PCP Nurse Practitioner Family; Visit Provider Physician Assistant
DX: K51.90 Ulcerative colitis, unspecified, without complications (principal)
CPT/HCPCS: 87505; 83993

== ENCOUNTER 2025-06-04 15:46 | Outpatient (REF) | payer MEDICARE, SELFPAY ==
[2025-06-04 20:24] LABS: Abs Immature Grans 0.01 10^3/uL (0.0-0.06); HCT 32.0 % (36.0-46.0); HGB 10.3 g/dL (11.2-15.7); Immature Grans % 0.2 %; MCH 31.0 pg (27.0-33.0); MCHC 32.2 % (32.0-36.0); MCV 96 fL (80-95); MPV 9.8 fL (8.0-11.0); Platelet Count 281 10^3/uL (130-400); RBC 3.32 10^6/uL (3.93-5.22); RDW 14.2 % (11.7-14.6); RDW-SD 49.3 fL; WBC 4.66 10^3/uL (4.4-10.8)
[2025-06-04 20:38] LABS: Iron 42 ug/dL (50-170); Total Iron Binding Capacity 428 ug/dL (250-425); Transferrin Sat 10 % (15-50)
[2025-06-04 20:40] LABS: Ferritin 19 ng/mL (7-271)
[2025-06-04 20:41] LABS: TSH (W/Ref FT4) 1.06 uIU/mL (0.55-4.78); Vitamin B12 195 pg/mL (211-911)
[2025-06-05 21:47] LABS: Hepatitis C Ab w Rflx HCV PCR Negative (Negative)
[2025-06-05 21:48] LABS: HIV-1/2 Ag & Ab Screen Negative (Negative)
[2025-06-08 14:58] LABS: Albumin 54.9 % (55.8-66.1); Albumin g/dL 4.3 g/dL (3.6-5.2); Alpha 1 g/dL 0.20 g/dL (0.15-0.40); Alpha 2 g/dL 0.80 g/dL (0.50-1.00); Beta g/dL 1.20 g/dL (0.60-1.20); Gamma g/dL 1.30 g/dL (0.60-1.60); Total Protein 7.8 g/dL (6.3-8.2)
== END 2025-06-04 15:47 | disposition home or self-care (01) ==
LOC: NCHCN 15:46
PROVIDERS: PCP Nurse Practitioner Family; Visit Provider Nurse Practitioner Family
DX: D50.8 Other iron deficiency anemias (principal); R53.83 Other fatigue; G62.9 Polyneuropathy, unspecified
CPT/HCPCS: 86803; 87389; 82607; 82728; 83540; 83550; 84165; 84443; 85025; 86038; 86320